=== PATIENT | female | born 1960 | race African-American/Black ===

== ENCOUNTER 2016-09-24 18:32 | Inpatient (IN) | payer OTHER ==
[~2016-09-24] VITALS: Ht 157.5 cm; Wt 48.1 kg
[2016-09-24] MEDS ORDERED: MORPHINE SULFATE 4 MG/ML CPJ (NOT FOR IM USE) IV STA (19:18)
[2016-09-24] MEDS ORDERED: ONDANSETRON HCL 4MG/2ML VIAL IV STA (19:18)
[2016-09-24] MEDS ORDERED: SODIUM CHLORIDE 0.9% 1,000 ML IV ONE (19:18)
[2016-09-24 19:51] LABS: BASOPHILS % 0.9 % (0.0-2.0); CHLORIDE 107 mEq/L (98-107); EOSINOPHILS % 0.9 % (0.0-5.0); HEMATOCRIT. 34.8 % (36.0-48.0); HEMOGLOBIN. 11.4 g/dL (12.0-16.0); LYMPHOCYTES % 16.7 % (20.0-50.0); MEAN CORPUSCULAR HEMOGLOBIN 26.5 pg (28.0-32.0); MEAN CORPUSCULAR VOLUME 81.4 fL (81.0-99.0); MONOCYTES % 11.8 % (2.0-8.0); NEUTROPHILS % 69.7 % (40.0-76.0); PLATELET 414 x1000/uL (130-400); RED BLOOD CELL COUNT 4.28 mill/uL (4.2-5.4); RED CELL DISTRIBUTION WIDTH 21.8 % (11.6-14.6)
[2016-09-24 19:53] LABS: INR 0.9; PROTHROMBIN TIME 9.8 sec
[2016-09-24 19:57] LABS: CARBON DIOXIDE 23 mEq/L (21-32)
[2016-09-24 21:17] LABS: CLARITY URINE CLEAR (CLEAR); COLOR URINE YELLOW (YELLOW); GLUCOSE URINE NEGATIVE (NEGATIVE); KETONES URINE NEGATIVE (NEGATIVE); LEUKOCYTE ESTERASE URINE NEGATIVE (NEGATIVE); NITRITE URINE NEGATIVE (NEGATIVE); OCCULT BLOOD URINE NEGATIVE (NEGATIVE); PH URINE 5.5 (4.5-8.0); PROTEIN URINE NEGATIVE (NEGATIVE); SPECIFIC GRAVITY URINE 1.015 (1.005-1.030); UROBILINOGEN URINE 0.2 E.U./dL (0.2-1.0)
[2016-09-24] MEDS ORDERED: KETOROLAC 30MG/ML VIAL IV ONE (22:00)
[2016-09-24] MEDS ORDERED: ACETAMINOPHEN 325MG TABLET PO PRN (22:30)
[2016-09-24] MEDS ORDERED: MAGNESIUM/ALUMINUM HYDROXIDE/SIMETHICONE 30ML UDC PO PRN (22:30)
[2016-09-24] MEDS ORDERED: SODIUM CHLORIDE 0.9% 1,000 ML IV SCH (22:30)
[2016-09-24] MEDS ORDERED: IPRATROPIUM/ALBUTEROL 0.5-3(2.5)MG/3ML NEB INH PRN (22:30)
[2016-09-24] MEDS ORDERED: ONDANSETRON HCL 4MG/2ML VIAL IV PRN (22:30)
[2016-09-24 23:24] LABS: CHLORIDE 108 mEq/L (98-107)
[2016-09-24 23:29] LABS: CARBON DIOXIDE 27 mEq/L (21-32)
[2016-09-24] MEDS: HYDROCODONE/ACETAMINOPHEN 5/325MG TABLET PO PRN (23:40)
[2016-09-25] MEDS: CLONIDINE 0.1MG TABLET PO PRN ×2 (00:31→19:59)
[2016-09-25 01:30] VITALS: BP 116/71
[2016-09-25] MEDS: HYDROCODONE/ACETAMINOPHEN 5/325MG TABLET PO PRN ×3 (02:08→17:18)
[2016-09-25] MEDS: METHYLPREDNISOLONE SOD SUCC 40 MG/ML VIAL IV SCH ×3 (02:18→17:14)
[2016-09-25] MEDS: MESALAMINE 400 MG CAPSULE.DR PO SCH ×4 (03:17→17:14)
[2016-09-25] MEDS ORDERED: CEFTRIAXONE 1 G PREMIX 50 ML IV SCH (03:30)
[2016-09-25] MEDS: METRONIDAZOLE 500 MG PREMIX 100 ML IV SCH ×2 (06:39→14:41)
[2016-09-25 06:46] LABS: HEMOGLOBIN. 10.2 g/dL (12.0-16.0); MEAN CORPUSCULAR VOLUME 82.2 fL (81.0-99.0); MEAN PLATELET VOLUME 7.4 fl (7.4-10.4); PLATELET 389 x1000/uL (130-400); RED BLOOD CELL COUNT 3.77 mill/uL (4.2-5.4)
[2016-09-25] MEDS ORDERED: P20 PO (06:52)
[2016-09-25 07:18] LABS: CREATINE KINASE 75 IU/L (26-192); HDL CHOLESTEROL 111 mg/dL (40-59); LDL CHOLESTEROL 33 mg/dL (5-100)
[2016-09-25 07:24] LABS: TROPONIN I < 0.02 ng/mL (0.00-0.04)
[2016-09-25 07:43] LABS: *AMPHETAMINES SCREEN URINE NEGATIVE (NEGATIVE); *BARBITURATES SCREEN URINE NEGATIVE (NEGATIVE); *BENZODIAZEPINES SCREEN URINE NEGATIVE (NEGATIVE); *COCAINE SCREEN URINE PRESUMTIVE POSITIVE (NEGATIVE); CANNABINOID URINE SCREEN PRESUMTIVE POSITIVE (NEGATIVE); METHADONE URINE SCREEN NEGATIVE (NEGATIVE); OPIATES URINE SCREEN PRESUMTIVE POSITIVE (NEGATIVE); PHENCYCLIDINE URINE SCREEN NEGATIVE (NEGATIVE)
[2016-09-25] MEDS ORDERED: HYDR-3927 (07:55)
[2016-09-25] MEDS ORDERED: PANT40TA4 (07:55)
[2016-09-25] MEDS ORDERED: PRED5TAB (07:55)
[2016-09-25] MEDS ORDERED: HYDR-4135 (07:55)
[2016-09-25] MEDS ORDERED: LISI-604 (07:55)
[2016-09-25 08:00] VITALS: BP 125/90
[2016-09-25] MEDS ORDERED: ENOXAPARIN 40MG/0.4ML SYR SUBCUT SCH (09:00)
[2016-09-25 12:00] VITALS: BP 126/76
[2016-09-25] MEDS: MORPHINE SULFATE 2 MG/ML CPJ (NOT FOR IM USE) IV PRN ×2 (12:44→19:55)
[2016-09-25 14:05] LABS: PLATELET ESTIMATE NORMAL
[2016-09-25 16:00] VITALS: BP 124/76
[2016-09-25 16:00] LABS: CREATINE KINASE 69 IU/L (26-192); CREATINE KINASE MB FRACTION < 0.5 ng/mL (0.5-3.6); TROPONIN I < 0.02 ng/mL (0.00-0.04)
[2016-09-25 19:53] VITALS: BP 146/108
[2016-09-25 20:01] VITALS: BP 146/108
== END 2016-09-25 21:15 | disposition short-term general hospital (02) | DRG 245 ==
LOC: ER 18:40 → 8WST 21:21 → ENRESERV 23:40
PROVIDERS: ADMIT Internal Medicine; ATTEND Internal Medicine
DX: K50.012 Crohn's disease of small intestine with intestinal obstruction (principal); K56.60 Unspecified intestinal obstruction; E46 Unspecified protein-calorie malnutrition; K86.89 Other specified diseases of pancreas; D25.9 Leiomyoma of uterus, unspecified; D64.9 Anemia, unspecified; F17.210 Nicotine dependence, cigarettes, uncomplicated; F14.10 Cocaine abuse, uncomplicated; I10 Essential (primary) hypertension; Z91.19 Patient's noncompliance with other medical treatment and regimen; Z88.6 Allergy status to analgesic agent; Z91.018 Allergy to other foods; Z76.5 Malingerer [conscious simulation]
CPT/HCPCS: 36415; 74176; 80048; 80053; 80061; 80305; 81003; 82550; 82553; 83735; 84443; 84484; 85025; 85610; 87040; 93970; 96361; 96374; 96375; 99285; J0696; J1650; J1885; J2270; J2405; J2920; J3490; J7030

== ENCOUNTER 2018-03-11 14:17 | Inpatient (IN) | payer SELFPAY ==
[~2018-03-11] VITALS: Ht 152.4 cm; Wt 45.5 kg
[~2018-03-11 14:17] MED LIST: HYDR-4001 PO; HYDR-4135; LISI-604; P20 PO; PANT40TA4; PRED5TAB
[2018-03-11] MEDS ORDERED: MORPHINE SULFATE 4 MG/ML CPJ (NOT FOR IM USE) IV STA (15:46)
[2018-03-11] MEDS ORDERED: ONDANSETRON HCL 4MG/2ML INJ IV STA (15:46)
[2018-03-11 16:29] LABS: CHLORIDE 106 mEq/L (98-107)
[2018-03-11 16:30] LABS: BASOPHILS % 1.3 % (0.0-2.0); EOSINOPHILS % 2.8 % (0.0-5.0); HEMATOCRIT. 41.9 % (36.0-48.0); HEMOGLOBIN. 14.2 g/dL (12.0-16.0); LYMPHOCYTES % 31.9 % (20.0-50.0); MEAN CORPUSCULAR HEMOGLOBIN 31.1 pg (28.0-32.0); MEAN CORPUSCULAR VOLUME 91.9 fL (81.0-99.0); MEAN PLATELET VOLUME 7.8 fl (7.4-10.4); MONOCYTES % 7.6 % (2.0-8.0); NEUTROPHILS % 56.4 % (40.0-76.0); PLATELET 306 x1000/uL (130-400); RED BLOOD CELL COUNT 4.56 mill/uL (4.2-5.4); RED CELL DISTRIBUTION WIDTH 15.4 % (11.6-14.6)
[2018-03-11] MEDS ORDERED: LISINOPRIL 10MG TABLET PO ONE (17:15)
[2018-03-11 17:37] LABS: CLARITY URINE CLEAR (CLEAR); COLOR URINE YELLOW (YELLOW); KETONES URINE NEGATIVE (NEGATIVE); LEUKOCYTE ESTERASE URINE NEGATIVE (NEGATIVE); NITRITE URINE NEGATIVE (NEGATIVE); OCCULT BLOOD URINE NEGATIVE (NEGATIVE); PH URINE 6.5 (4.5-8.0); PROTEIN URINE NEGATIVE (NEGATIVE); UROBILINOGEN URINE 0.2 E.U./dL (0.2-1.0)
[2018-03-11 17:50] LABS: *AMPHETAMINES SCREEN URINE NEGATIVE (NEGATIVE); *BARBITURATES SCREEN URINE NEGATIVE (NEGATIVE)
[2018-03-11 17:51] LABS: *BENZODIAZEPINES SCREEN URINE NEGATIVE (NEGATIVE); *COCAINE SCREEN URINE PRESUMTIVE POSITIVE (NEGATIVE); CANNABINOID URINE SCREEN NEGATIVE (NEGATIVE); METHADONE URINE SCREEN NEGATIVE (NEGATIVE); OPIATES URINE SCREEN NEGATIVE (NEGATIVE); PHENCYCLIDINE URINE SCREEN NEGATIVE (NEGATIVE)
[2018-03-11] MEDS ORDERED: MORPHINE SULFATE 4 MG/ML CPJ (NOT FOR IM USE) IV ONE (19:15)
[2018-03-11] MEDS ORDERED: ONDANSETRON HCL 4MG/2ML INJ IV ONE (19:15)
[2018-03-12] VITALS (8 sets, daily range): BP systolic 129–174; BP diastolic 75–100
[2018-03-12] MEDS ORDERED: GUAIFENESIN 200MG/10ML SUGAR FREE UDC PO PRN ×2 (00:45→01:30)
[2018-03-12] MEDS ORDERED: ACETAMINOPHEN 325MG TABLET PO PRN ×2 (00:45→01:30)
[2018-03-12] MEDS ORDERED: IPRATROPIUM/ALBUTEROL 0.5-3(2.5)MG/3ML NEB INH PRN ×2 (00:45→01:30)
[2018-03-12] MEDS ORDERED: MAGNESIUM/ALUMINUM HYDROXIDE/SIMETHICONE 30ML UDC PO PRN (00:45)
[2018-03-12] MEDS ORDERED: ONDANSETRON HCL 4MG/2ML INJ IV PRN ×2 (00:45→01:30)
[2018-03-12] MEDS ORDERED: AMLO2.5T45 MT (01:06)
[2018-03-12] MEDS ORDERED: PANT20TA3 MT (01:06)
[2018-03-12] MEDS ORDERED: BENA10TA10 MT (01:06)
[2018-03-12] MEDS ORDERED: DIPH1TAB24 MT (01:06)
[2018-03-12] MEDS: CLONIDINE 0.1MG TABLET PO PRN (01:14)
[2018-03-12] MEDS ORDERED: HYDRALAZINE 20MG/ML VIAL IV PRN (01:30)
[2018-03-12] MEDS ORDERED: DIPHENHYDRAMINE 50MG/ML VIAL IV PRN (01:30)
[2018-03-12] MEDS: TRAMADOL 50MG TABLET PO PRN ×4 (02:12→22:37)
[2018-03-12] MEDS ORDERED: METHYLPREDNISOLONE SOD SUCC 125 MG/2 ML VIAL IV NR (03:00)
[2018-03-12] MEDS: DEXT 5%/0.45% NACL KCL 20MEQ/L 1,000 ML IV SCH ×3 (03:27→20:57)
[2018-03-12] MEDS: IPRATROPIUM/ALBUTEROL 0.5-3(2.5)MG/3ML NEB HHN SCH ×5 (03:45→20:36)
[2018-03-12] MEDS: SODIUM CHLORIDE 0.9% INJ 3ML FLUSH IVF SCH ×3 (06:00→22:37)
[2018-03-12] MEDS ORDERED: FAMOTIDINE 20MG TABLET PO SCH (09:00)
[2018-03-12] MEDS: BENAZEPRIL 10MG TABLET PO SCH (09:14)
[2018-03-12] MEDS: FAMOTIDINE 20MG TABLET PO SCH ×2 (09:14→20:57)
[2018-03-12] MEDS: AMLODIPINE 2.5MG TABLET PO SCH (09:14)
[2018-03-12] MEDS: ENOXAPARIN 40MG/0.4ML SYR SUBCUT SCH (09:15)
[2018-03-12] MEDS: METHYLPREDNISOLONE SOD SUCC 40 MG/ML VIAL IV SCH ×2 (13:18→20:56)
[2018-03-12] MEDS: MESALAMINE 400 MG CAPSULE.DR PO SCH ×2 (14:00→17:44)
[2018-03-13] VITALS: BP 154/84
[2018-03-13] MEDS: CLONIDINE 0.1MG TABLET PO PRN (03:29)
[2018-03-13 04:00] VITALS: BP 167/85
[2018-03-13] MEDS: METHYLPREDNISOLONE SOD SUCC 40 MG/ML VIAL IV SCH ×2 (04:40→12:44)
[2018-03-13] MEDS: TRAMADOL 50MG TABLET PO PRN ×2 (04:46→11:22)
[2018-03-13] MEDS: IPRATROPIUM/ALBUTEROL 0.5-3(2.5)MG/3ML NEB HHN SCH ×5 (04:48→15:07)
[2018-03-13] MEDS: SODIUM CHLORIDE 0.9% INJ 3ML FLUSH IVF SCH ×2 (05:26→12:44)
[2018-03-13] MEDS: DEXT 5%/0.45% NACL KCL 20MEQ/L 1,000 ML IV SCH (07:12)
[2018-03-13 08:00] VITALS: BP 139/86
[2018-03-13] MEDS: ENOXAPARIN 40MG/0.4ML SYR SUBCUT SCH (09:50)
[2018-03-13] MEDS: FAMOTIDINE 20MG TABLET PO SCH (09:51)
[2018-03-13] MEDS: BENAZEPRIL 10MG TABLET PO SCH (09:51)
[2018-03-13] MEDS: AMLODIPINE 2.5MG TABLET PO SCH (09:51)
[2018-03-13] MEDS: MESALAMINE 400 MG CAPSULE.DR PO SCH ×2 (09:51→12:44)
[2018-03-13 12:00] VITALS: BP 142/83
[2018-03-13 15:22] VITALS: BP 142/83
== END 2018-03-13 17:30 | disposition home or self-care (01) | DRG 245 ==
LOC: ER 15:11 → 5WST 19:14 → EDBEDREQ 19:18 → EDBEDREQTM 19:18 → ENRESERV 22:48
PROVIDERS: ADMIT Internal Medicine; ATTEND Internal Medicine
DX: K50.00 Crohn's disease of small intestine without complications (principal); F14.10 Cocaine abuse, uncomplicated; R07.89 Other chest pain; F17.210 Nicotine dependence, cigarettes, uncomplicated; I10 Essential (primary) hypertension; J44.9 Chronic obstructive pulmonary disease, unspecified; M54.30 Sciatica, unspecified side; Z79.52 Long term (current) use of systemic steroids; Z82.49 Family history of ischemic heart disease and other diseases of the circulatory system; Z91.14 Patient's other noncompliance with medication regimen; Z91.19 Patient's noncompliance with other medical treatment and regimen; Z88.5 Allergy status to narcotic agent; Z91.018 Allergy to other foods
CPT/HCPCS: 36415; 71045; 74176; 80305; 83880; 84484; 93005; 94640; 96374; 96375; 96376; 99285; J1650; J2270; J2405; J2920; J2930; J7620

== ENCOUNTER 2018-06-02 03:00 | Emergency (ER) | payer OTHER ==
[~2018-06-02] VITALS: Ht 162.6 cm; Wt 65.0 kg
[~2018-06-02 03:00] MED LIST changes: +AMLO2.5T45 MT; +BENA10TA10 MT; +DIPH1TAB24 MT; -HYDR-4135; -LISI-604; +PANT20TA3 MT; -PANT40TA4; -PRED5TAB
[2018-06-02] MEDS ORDERED: SODIUM CHLORIDE 0.9% 1,000 ML IV ONE (05:03)
[2018-06-02] MEDS ORDERED: ACETAMINOPHEN 325MG TABLET PO STA (05:03)
[2018-06-02] MEDS ORDERED: MORPHINE SULFATE 4 MG/ML CPJ (NOT FOR IM USE) IV STA (05:03)
[2018-06-02] MEDS ORDERED: ONDANSETRON HCL 4MG/2ML INJ IV STA (05:03)
[2018-06-02 05:41] LABS: EOSINOPHILS % 0.7 % (0.0-5.0); HEMATOCRIT. 40.7 % (36.0-48.0); HEMOGLOBIN. 13.8 g/dL (12.0-16.0); LYMPHOCYTES % 15.6 % (20.0-50.0); MEAN CORPUSCULAR HEMOGLOBIN 30.1 pg (28.0-32.0); MEAN CORPUSCULAR VOLUME 88.8 fL (81.0-99.0); MONOCYTES % 7.9 % (2.0-8.0); NEUTROPHILS % 74.8 % (40.0-76.0); PLATELET 239 x1000/uL (130-400); RED BLOOD CELL COUNT 4.59 mill/uL (4.2-5.4); RED CELL DISTRIBUTION WIDTH 14.8 % (11.6-14.6)
[2018-06-02 05:46] LABS: CHLORIDE 100 mEq/L (98-107)
[2018-06-02] MEDS ORDERED: CEFTRIAXONE 1 G PREMIX 50 ML IV ONE (06:15)
[2018-06-02] MEDS ORDERED: AZITHROMYCIN 500 MG in DEXT 5% WATER 250 ML IV ONE (06:15)
[2018-06-02 07:05] LABS: CLARITY URINE CLEAR (CLEAR); COLOR URINE YELLOW (YELLOW); KETONES URINE NEGATIVE (NEGATIVE); LEUKOCYTE ESTERASE URINE NEGATIVE (NEGATIVE); NITRITE URINE NEGATIVE (NEGATIVE); OCCULT BLOOD URINE NEGATIVE (NEGATIVE); PH URINE 5.5 (4.5-8.0); PROTEIN URINE TRACE (NEGATIVE); SPECIFIC GRAVITY URINE 1.019 (1.005-1.030)
[2018-06-02] MEDS ORDERED: HYDROCODONE/ACETAMINOPHEN 5/325MG TABLET PO PRN (13:15)
[2018-06-02] MEDS ORDERED: CLONIDINE 0.1MG TABLET PO PRN (13:30)
[2018-06-02] MEDS ORDERED: IPRATROPIUM/ALBUTEROL 0.5-3(2.5)MG/3ML NEB HHN SCH (16:00)
[2018-06-02 17:31] VITALS: BP 137/87
== END 2018-06-02 18:00 | disposition short-term general hospital (02) ==
LOC: ER 03:00 → CANBEDREQ 17:02 → ER 18:00
DX: J44.1 Chronic obstructive pulmonary disease with (acute) exacerbation (principal); J18.9 Pneumonia, unspecified organism; K50.90 Crohn's disease, unspecified, without complications; F14.10 Cocaine abuse, uncomplicated; I10 Essential (primary) hypertension; F17.200 Nicotine dependence, unspecified, uncomplicated; M54.9 Dorsalgia, unspecified; Z71.6 Tobacco abuse counseling; Z88.6 Allergy status to analgesic agent; Z91.018 Allergy to other foods
CPT/HCPCS: 36415; 71045; 80053; 81003; 83605; 85025; 87040; 87804; 94640; 96365; 96366; 96367; 96375; 96376; 99285; 99406; J0456; J0696; J2270; J2405; J7030; J7060; J7620

== ENCOUNTER 2018-07-06 11:16 | Inpatient (IN) | payer OTHER ==
[~2018-07-06] VITALS: Ht 152.4 cm; Wt 48.1 kg
[2018-07-06 12:20] LABS: BASOPHILS % 0.8 % (0.0-2.0); EOSINOPHILS % 2.2 % (0.0-5.0); HEMATOCRIT. 42.7 % (36.0-48.0); LYMPHOCYTES % 33.5 % (20.0-50.0); MEAN CORPUSCULAR HEMOGLOBIN 29.3 pg (28.0-32.0); MEAN CORPUSCULAR VOLUME 89.2 fL (81.0-99.0); MEAN PLATELET VOLUME 7.2 fl (7.4-10.4); MONOCYTES % 8.4 % (2.0-8.0); NEUTROPHILS % 55.1 % (40.0-76.0); PLATELET 285 x1000/uL (130-400); RED BLOOD CELL COUNT 4.78 mill/uL (4.2-5.4); RED CELL DISTRIBUTION WIDTH 14.7 % (11.6-14.6)
[2018-07-06 12:25] LABS: INR 0.9; PROTHROMBIN TIME 9.5 sec (9.1-11.1)
[2018-07-06 12:26] LABS: CHLORIDE 107 mEq/L (98-107)
[2018-07-06] MEDS ORDERED: TETRACAINE 0.5% OPHTH DROPS 4ML RIGHTEYE ONE (12:30)
[2018-07-06] MEDS ORDERED: PILOCARPINE HCL 2% OPHTH DROPS 15ML RIGHTEYE STA (13:01)
[2018-07-06] MEDS ORDERED: TIMOLOL MALEATE 0.5% OPHTH DROPS 5ML RIGHTEYE STA (13:01)
[2018-07-06] MEDS ORDERED: ACETAZOLAMIDE SODIUM 500MG/VIAL IV ONE (13:15)
[2018-07-06] MEDS ORDERED: MANNITOL 20% (20GM/100ML) BAG 500ML PREMIX IV ONE (13:30)
[2018-07-06] MEDS ORDERED: MANNITOL 20% 250 ML IV SCH (14:00)
[2018-07-06] MEDS ORDERED: OXYCODONE HCL/ACETAMINOPHEN 5/325MG TABLET PO ONE (14:00)
[2018-07-06] MEDS ORDERED: ACETAMINOPHEN 325MG TABLET PO PRN (14:15)
[2018-07-06] MEDS ORDERED: HYDROCODONE/ACETAMINOPHEN 5/325MG TABLET PO PRN (14:15)
[2018-07-06] MEDS ORDERED: LABETALOL 5MG/ML SYR 20 MG/4 ML SYRINGE IV SCH (15:15)
[2018-07-06] MEDS: CLONIDINE 0.1MG TABLET PO PRN ×2 (15:19→22:43)
[2018-07-06] MEDS: MORPHINE SULFATE 4 MG/ML CPJ (NOT FOR IM USE) IV PRN ×2 (17:52→22:44)
[2018-07-06 21:45] VITALS: BP 165/95
[2018-07-06] MEDS: PILOCARPINE HCL 2% OPHTH DROPS 15ML BOTHEYE SCH (22:41)
[2018-07-06] MEDS: LATANOPROST 0.005% OPHTH DROPS 2.5ML BOTHEYE SCH (22:41)
[2018-07-06] MEDS: TIMOLOL MALEATE 0.5% OPHTH DROPS 5ML EACHEYE SCH (23:23)
[2018-07-06] MEDS ORDERED: MESA800T PO (23:57)
[2018-07-07] VITALS: BP 136/87
[2018-07-07] MEDS: IPRATROPIUM/ALBUTEROL 0.5-3(2.5)MG/3ML NEB HHN PRN (00:44)
[2018-07-07] MEDS: BUDESONIDE 0.5MG/2ML NEB HHN SCH ×3 (00:45→21:53)
[2018-07-07] MEDS: MORPHINE SULFATE 4 MG/ML CPJ (NOT FOR IM USE) IV PRN ×4 (03:10→21:17)
[2018-07-07 04:00] VITALS: BP 126/86
[2018-07-07] MEDS: PILOCARPINE HCL 2% OPHTH DROPS 15ML BOTHEYE SCH ×3 (06:03→21:17)
[2018-07-07 07:03] LABS: BASOPHILS % 0.6 % (0.0-2.0); EOSINOPHILS % 2.4 % (0.0-5.0); HEMATOCRIT. 40.6 % (36.0-48.0); HEMOGLOBIN. 13.2 g/dL (12.0-16.0); LYMPHOCYTES % 32.2 % (20.0-50.0); MEAN CORPUSCULAR HEMOGLOBIN 29.4 pg (28.0-32.0); MEAN CORPUSCULAR VOLUME 90.5 fL (81.0-99.0); MEAN PLATELET VOLUME 7.7 fl (7.4-10.4); MONOCYTES % 7.8 % (2.0-8.0); PLATELET 248 x1000/uL (130-400); RED BLOOD CELL COUNT 4.49 mill/uL (4.2-5.4)
[2018-07-07 07:13] LABS: CHLORIDE 107 mEq/L (98-107)
[2018-07-07] MEDS: AMLODIPINE 5MG TABLET PO SCH ×2 (08:35→21:00)
[2018-07-07] MEDS: BENAZEPRIL 10MG TABLET PO SCH (08:36)
[2018-07-07] MEDS: TIMOLOL MALEATE 0.5% OPHTH DROPS 5ML EACHEYE SCH ×2 (08:36→21:08)
[2018-07-07] MEDS: ACETAZOLAMIDE SODIUM 500MG/VIAL IV SCH ×2 (08:37→18:51)
[2018-07-07] MEDS ORDERED: BENAZEPRIL 10MG TABLET PO SCH (09:00)
[2018-07-07 12:15] VITALS: BP 114/74
[2018-07-07 15:31] VITALS: BP 110/74
[2018-07-07] MEDS ORDERED: BALANCED SALT IRRIG SOLN 15ML ONE (16:21)
[2018-07-07] MEDS ORDERED: BUPIVACAINE HCL/PF 0.75% (7.5MG/ML) 10ML ONE (16:21)
[2018-07-07] MEDS ORDERED: LIDOCAINE HCL/PF 2% 20 MG/ML 10ML VIAL ONE (16:21)
[2018-07-07] MEDS ORDERED: LIDOCAINE HCL 2%/EPINEPHRINE 1:100,000 20 ML VIAL INFIL ONE (16:21)
[2018-07-07 20:00] VITALS: BP 109/76
[2018-07-07] MEDS: LATANOPROST 0.005% OPHTH DROPS 2.5ML BOTHEYE SCH (21:08)
[2018-07-08] VITALS: BP 110/71
[2018-07-08 04:00] VITALS: BP 128/80
[2018-07-08] MEDS: PILOCARPINE HCL 2% OPHTH DROPS 15ML BOTHEYE SCH ×3 (06:56→22:46)
[2018-07-08] MEDS: ACETAZOLAMIDE SODIUM 500MG/VIAL IV SCH (07:49)
[2018-07-08] MEDS: AMLODIPINE 5MG TABLET PO SCH ×2 (07:49→21:23)
[2018-07-08] MEDS: BENAZEPRIL 10MG TABLET PO SCH (07:49)
[2018-07-08] MEDS: TIMOLOL MALEATE 0.5% OPHTH DROPS 5ML EACHEYE SCH ×2 (07:50→21:23)
[2018-07-08] MEDS: MORPHINE SULFATE 4 MG/ML CPJ (NOT FOR IM USE) IV PRN ×4 (07:51→22:17)
[2018-07-08 08:00] VITALS: BP 127/67
[2018-07-08] MEDS: IPRATROPIUM/ALBUTEROL 0.5-3(2.5)MG/3ML NEB HHN PRN (09:29)
[2018-07-08] MEDS: BUDESONIDE 0.5MG/2ML NEB HHN SCH ×2 (09:29→20:25)
[2018-07-08 12:00] VITALS: BP 118/82
[2018-07-08] MEDS ORDERED: BALANCED SALT IRRIG SOLN COMB1 500ML OP NR (12:00)
[2018-07-08] MEDS ORDERED: MITOMYCIN 0.2 MG KIT OP NR (12:00)
[2018-07-08] MEDS ORDERED: ONDANSETRON HCL 4MG/2ML INJ ONE (15:10)
[2018-07-08] MEDS ORDERED: PROPOFOL 200MG/20ML VIAL IV ONE (15:10)
[2018-07-08] MEDS ORDERED: DEXAMETHASONE 4MG/ML 1ML VIAL ONE (15:10)
[2018-07-08] MEDS ORDERED: MIDAZOLAM HCL 2 MG/2 ML VIAL ONE ×2 (15:10→15:29)
[2018-07-08] MEDS ORDERED: FENTANYL CITRATE/PF 50MCG/ML 2ML VIAL ONE ×2 (15:10→15:29)
[2018-07-08] MEDS ORDERED: MEPERIDINE HCL/PF 25MG/ML CPJ IV PRN (15:45)
[2018-07-08] MEDS ORDERED: ONDANSETRON HCL 4MG/2ML INJ IV PRN (15:45)
[2018-07-08] MEDS ORDERED: HYDROMORPHONE HCL/PF 2MG/ML CPJ IV PRN (15:45)
[2018-07-08] MEDS ORDERED: LABETALOL 5MG/ML SYR 20 MG/4 ML SYRINGE IV PRN (15:45)
[2018-07-08 16:00] VITALS: BP 146/78
[2018-07-08] MEDS ORDERED: ACETAMINOPHEN 325MG TABLET PO PRN (17:53)
[2018-07-08 20:04] VITALS: BP 126/69
[2018-07-08] MEDS: LATANOPROST 0.005% OPHTH DROPS 2.5ML BOTHEYE SCH (21:23)
[2018-07-09] MEDS: CLONIDINE 0.1MG TABLET PO PRN (00:11)
[2018-07-09 00:21] VITALS: BP 168/98
[2018-07-09 01:40] VITALS: BP 136/62
[2018-07-09] MEDS: MORPHINE SULFATE 4 MG/ML CPJ (NOT FOR IM USE) IV PRN ×3 (01:54→11:50)
[2018-07-09 04:00] VITALS: BP 126/72
[2018-07-09] MEDS: PILOCARPINE HCL 2% OPHTH DROPS 15ML BOTHEYE SCH (05:44)
[2018-07-09 06:29] LABS: BASOPHILS % 0.2 % (0.0-2.0); EOSINOPHILS % 1.6 % (0.0-5.0); HEMATOCRIT. 36.4 % (36.0-48.0); HEMOGLOBIN. 11.9 g/dL (12.0-16.0); LYMPHOCYTES % 19.8 % (20.0-50.0); MEAN CORPUSCULAR HEMOGLOBIN 29.6 pg (28.0-32.0); MEAN CORPUSCULAR VOLUME 90.3 fL (81.0-99.0); MEAN PLATELET VOLUME 7.2 fl (7.4-10.4); MONOCYTES % 10.5 % (2.0-8.0); NEUTROPHILS % 67.9 % (40.0-76.0); PLATELET 254 x1000/uL (130-400); RED BLOOD CELL COUNT 4.03 mill/uL (4.2-5.4); RED CELL DISTRIBUTION WIDTH 14.9 % (11.6-14.6)
[2018-07-09 06:44] LABS: CHLORIDE 109 mEq/L (98-107)
[2018-07-09 08:00] VITALS: BP 120/72
[2018-07-09] MEDS: AMLODIPINE 5MG TABLET PO SCH (08:28)
[2018-07-09] MEDS: BENAZEPRIL 10MG TABLET PO SCH (08:29)
[2018-07-09] MEDS: TIMOLOL MALEATE 0.5% OPHTH DROPS 5ML EACHEYE SCH (08:29)
[2018-07-09] MEDS: PREDNISOLONE ACETATE 1% OPHTH DROPS 1ML RIGHTEYE SCH ×3 (08:29→12:55)
[2018-07-09] MEDS: CIPROFLOXACIN 0.3% OPHTH SOLN 2.5ML RIGHTEYE SCH ×2 (08:30→12:55)
[2018-07-09] MEDS: BUDESONIDE 0.5MG/2ML NEB HHN SCH (09:14)
[2018-07-09 10:19] VITALS: BP 120/72
[2018-07-09 12:00] VITALS: BP 117/73
== END 2018-07-09 14:35 | disposition home or self-care (01) | DRG 73 ==
LOC: ER 11:16 → 6WST 13:50 → EDBEDREQTM 13:53 → EDBEDREQ 13:53 → EDBEDREQSVC 13:53 → ENRESERV 20:51
PROVIDERS: ADMIT Internal Medicine; ATTEND Internal Medicine
PROC: 08123Z4 Bypass Right Anterior Chamber to Sclera, Percutaneous Approach (ICD-10-PCS; principal; 2018-07-08)
PROC: 08BC3ZZ Excision of Right Iris, Percutaneous Approach (ICD-10-PCS; 2018-07-08)
DX: H40.10X0 Unspecified open-angle glaucoma, stage unspecified (principal); H47.291 Other optic atrophy, right eye; K50.90 Crohn's disease, unspecified, without complications; I16.0 Hypertensive urgency; I10 Essential (primary) hypertension; J44.9 Chronic obstructive pulmonary disease, unspecified; F17.200 Nicotine dependence, unspecified, uncomplicated; H25.13 Age-related nuclear cataract, bilateral; H54.62 Unqualified visual loss, left eye, normal vision right eye; Z91.19 Patient's noncompliance with other medical treatment and regimen; Z79.899 Other long term (current) drug therapy; Z88.8 Allergy status to other drugs, medicaments and biological substances; Z91.018 Allergy to other foods
CPT/HCPCS: 36415; 72148; 80048; 80061; 84443; 93970; 94640; 96365; 96366; 96375; 99285; J1100; J1120; J2250; J2270; J2405; J2704; J3010; J3490; J7620; J7626; J9280

== ENCOUNTER 2018-12-01 17:03 | Emergency (ER) | payer OTHER ==
[~2018-12-01] VITALS: Ht 152.4 cm; Wt 48.0 kg
[~2018-12-01 17:03] MED LIST changes: -AMLO2.5T45 MT; -BENA10TA10 MT; +MESA800T PO
[2018-12-01 18:43] VITALS: BP 162/110
== END 2018-12-01 22:00 | disposition left against medical advice (07) ==
LOC: ER 17:03
DX: Z53.21 Procedure and treatment not carried out due to patient leaving prior to being seen by health care provider (principal); I11.0 Hypertensive heart disease with heart failure; I50.9 Heart failure, unspecified; J44.9 Chronic obstructive pulmonary disease, unspecified; K50.90 Crohn's disease, unspecified, without complications
CPT/HCPCS: 93005

== ENCOUNTER 2019-01-03 14:53 | Emergency (ER) | payer OTHER ==
[~2019-01-03] VITALS: Ht 167.6 cm; Wt 63.5 kg
[2019-01-03] MEDS ORDERED: MORPHINE SULFATE 4 MG/ML CPJ (NOT FOR IM USE) IV STA (16:53)
[2019-01-03] MEDS ORDERED: SODIUM CHLORIDE 0.9% 1,000 ML IV ONE (16:53)
[2019-01-03] MEDS ORDERED: ONDANSETRON HCL 4MG/2ML INJ IV STA (16:53)
[2019-01-03] MEDS ORDERED: HYDRALAZINE 20MG/ML VIAL IV ONE ×2 (17:00→18:15)
[2019-01-03 17:41] LABS: EOSINOPHILS % 1.4 % (0.0-5.0); HEMATOCRIT. 41.1 % (36.0-48.0); HEMOGLOBIN. 13.9 g/dL (12.0-16.0); LYMPHOCYTES % 27.7 % (20.0-50.0); MEAN CORPUSCULAR HEMOGLOBIN 30.4 pg (28.0-32.0); MEAN PLATELET VOLUME 8.4 fl (7.4-10.4); MONOCYTES % 7.6 % (2.0-8.0); NEUTROPHILS % 62.3 % (40.0-76.0); PLATELET 272 x1000/uL (130-400); RED BLOOD CELL COUNT 4.57 mill/uL (4.2-5.4)
[2019-01-03 17:48] LABS: CHLORIDE 107 mEq/L (98-107)
[2019-01-03 17:50] LABS: INR 0.9; PARTIAL THROMBOPLASTIN TIME 25.8 sec (23.4-31.0); PROTHROMBIN TIME 9.4 sec (9.6-11.0)
[2019-01-03 18:30] LABS: CLARITY URINE CLEAR (CLEAR); COLOR URINE YELLOW (YELLOW); KETONES URINE NEGATIVE (NEGATIVE); LEUKOCYTE ESTERASE URINE NEGATIVE (NEGATIVE); NITRITE URINE NEGATIVE (NEGATIVE); OCCULT BLOOD URINE NEGATIVE (NEGATIVE); PH URINE 7.5 (4.5-8.0); PROTEIN URINE NEGATIVE (NEGATIVE); SPECIFIC GRAVITY URINE 1.005 (1.005-1.030); UROBILINOGEN URINE 0.2 E.U./dL (0.2-1.0)
[2019-01-03] MEDS ORDERED: TRAMADOL 50MG TABLET PO ONE (20:30)
[2019-01-03 21:18] VITALS: BP 147/85
== END 2019-01-03 21:19 | disposition home or self-care (01) ==
LOC: ER 14:53
DX: R10.13 Epigastric pain (principal); K50.90 Crohn's disease, unspecified, without complications; D25.9 Leiomyoma of uterus, unspecified; I11.0 Hypertensive heart disease with heart failure; I50.9 Heart failure, unspecified; J44.9 Chronic obstructive pulmonary disease, unspecified; M54.30 Sciatica, unspecified side; Z88.6 Allergy status to analgesic agent; Z91.018 Allergy to other foods
CPT/HCPCS: 36415; 71045; 74176; 80053; 81003; 83690; 83880; 84484; 85025; 85610; 85730; 93005; 96374; 96375; 99284; J0360; J2270; J2405; J7030

== ENCOUNTER 2019-01-11 17:23 | Emergency (ER) | payer OTHER ==
[~2019-01-11] VITALS: Ht 152.4 cm; Wt 45.0 kg
[2019-01-11] MEDS ORDERED: MORPHINE SULFATE 4 MG/ML CPJ (NOT FOR IM USE) IV STA (18:29)
[2019-01-11] MEDS ORDERED: ONDANSETRON HCL 4MG/2ML INJ IV STA (18:29)
[2019-01-11] MEDS ORDERED: SODIUM CHLORIDE 0.9% 1,000 ML IV ONE (18:29)
[2019-01-11 18:58] LABS: BASOPHILS % 1.1 % (0.0-2.0); EOSINOPHILS % 1.2 % (0.0-5.0); HEMATOCRIT. 41.1 % (36.0-48.0); HEMOGLOBIN. 13.5 g/dL (12.0-16.0); LYMPHOCYTES % 24.7 % (20.0-50.0); MEAN CORPUSCULAR HEMOGLOBIN 29.9 pg (28.0-32.0); MEAN CORPUSCULAR VOLUME 90.9 fL (81.0-99.0); MEAN PLATELET VOLUME 7.5 fl (7.4-10.4); MONOCYTES % 9.8 % (2.0-8.0); NEUTROPHILS % 63.2 % (40.0-76.0); PLATELET 301 x1000/uL (130-400); RED BLOOD CELL COUNT 4.52 mill/uL (4.2-5.4)
[2019-01-11 19:01] LABS: CHLORIDE 109 mEq/L (98-107)
[2019-01-11 19:02] LABS: PARTIAL THROMBOPLASTIN TIME 25.7 sec (23.4-31.0); PROTHROMBIN TIME 9.8 sec (9.6-11.0)
[2019-01-11 19:05] LABS: ETHANOL BLOOD < 10 mg/dL
[2019-01-11 19:09] LABS: CREATINE KINASE 67 IU/L (26-192)
[2019-01-11 19:10] LABS: CREATINE KINASE MB FRACTION < 1.0 ng/mL (0.5-3.6)
[2019-01-11 20:33] LABS: CLARITY URINE CLEAR (CLEAR); COLOR URINE YELLOW (YELLOW); KETONES URINE NEGATIVE (NEGATIVE); LEUKOCYTE ESTERASE URINE NEGATIVE (NEGATIVE); NITRITE URINE NEGATIVE (NEGATIVE); OCCULT BLOOD URINE NEGATIVE (NEGATIVE); PROTEIN URINE NEGATIVE (NEGATIVE); SPECIFIC GRAVITY URINE 1.017 (1.005-1.030); UROBILINOGEN URINE 0.2 E.U./dL (0.2-1.0)
[2019-01-11 21:01] LABS: OPIATES URINE SCREEN PRESUMTIVE POSITIVE (NEGATIVE)
[2019-01-11 21:02] LABS: *AMPHETAMINES SCREEN URINE NEGATIVE (NEGATIVE); *BARBITURATES SCREEN URINE NEGATIVE (NEGATIVE); *BENZODIAZEPINES SCREEN URINE NEGATIVE (NEGATIVE); *COCAINE SCREEN URINE PRESUMTIVE POSITIVE (NEGATIVE); CANNABINOID URINE SCREEN NEGATIVE (NEGATIVE); METHADONE URINE SCREEN NEGATIVE (NEGATIVE); PHENCYCLIDINE URINE SCREEN NEGATIVE (NEGATIVE)
[2019-01-11 22:10] VITALS: BP 172/89
[2019-01-11] MEDS ORDERED: MORPHINE SULFATE 4 MG/ML CPJ (NOT FOR IM USE) IV ONE (22:45)
[2019-01-11] MEDS ORDERED: ONDANSETRON HCL 4MG/2ML INJ IV ONE (22:45)
== END 2019-01-11 23:48 | disposition short-term general hospital (02) ==
LOC: ER 17:23 → CANBEDREQ 01-12 00:43
DX: J44.9 Chronic obstructive pulmonary disease, unspecified (principal); I11.0 Hypertensive heart disease with heart failure; I50.9 Heart failure, unspecified; K50.90 Crohn's disease, unspecified, without complications; K56.7 Ileus, unspecified; Z88.6 Allergy status to analgesic agent; Z91.018 Allergy to other foods; Z79.899 Other long term (current) drug therapy
CPT/HCPCS: 36415; 71045; 74018; 80053; 80305; 80320; 81003; 82140; 82550; 82553; 83605; 83690; 83880; 84443; 84484; 85025; 85610; 85730; 87040; 87086; 93005; 96361; 96374; 96375; 96376; 99285; J2270; J2405; J7030; Z7610; G0480

== ENCOUNTER 2019-03-29 10:30 | Inpatient (IN) | payer OTHER ==
[~2019-03-29] VITALS: Ht 152.4 cm; Wt 52.2 kg
[2019-03-29] MEDS ORDERED: SODIUM CHLORIDE 0.9% 1,000 ML IV ONE (12:16)
[2019-03-29] MEDS ORDERED: GABAPENTIN 300MG CAPSULE PO ONE (12:30)
[2019-03-29] MEDS ORDERED: MORPHINE SULFATE 4 MG/ML CPJ (NOT FOR IM USE) IV STA (14:22)
[2019-03-29] MEDS ORDERED: ONDANSETRON HCL 4MG/2ML INJ IV STA (14:22)
[2019-03-29 14:37] LABS: BASOPHILS % 1.4 % (0.0-2.0); EOSINOPHILS % 1.2 % (0.0-5.0); HEMATOCRIT. 39.1 % (36.0-48.0); MEAN CORPUSCULAR HEMOGLOBIN 28.6 pg (28.0-32.0); MEAN CORPUSCULAR VOLUME 86.4 fL (81.0-99.0); MEAN PLATELET VOLUME 7.6 fl (7.4-10.4); NEUTROPHILS % 69.4 % (40.0-76.0); PLATELET 308 x1000/uL (130-400); RED BLOOD CELL COUNT 4.53 mill/uL (4.2-5.4); RED CELL DISTRIBUTION WIDTH 13.8 % (11.6-14.6)
[2019-03-29 14:41] LABS: CHLORIDE 108 mEq/L (98-107)
[2019-03-29 15:03] LABS: INR 0.9; PROTHROMBIN TIME 9.4 sec (9.6-11.0)
[2019-03-29 15:33] LABS: CLARITY URINE CLOUDY (CLEAR); COLOR URINE YELLOW (YELLOW); KETONES URINE NEGATIVE (NEGATIVE); LEUKOCYTE ESTERASE URINE NEGATIVE (NEGATIVE); NITRITE URINE NEGATIVE (NEGATIVE); OCCULT BLOOD URINE NEGATIVE (NEGATIVE); PH URINE 5.5 (4.5-8.0); PROTEIN URINE NEGATIVE (NEGATIVE); SPECIFIC GRAVITY URINE 1.035 (1.005-1.030); UROBILINOGEN URINE 0.2 E.U./dL (0.2-1.0)
[2019-03-29] MEDS ORDERED: HYDRALAZINE HCL 25MG TABLET PO ONE (18:15)
[2019-03-29] MEDS ORDERED: OLANZAPINE 5MG TABLET PO SCH (18:15)
[2019-03-29] MEDS ORDERED: IOHEXOL-300 100 ML BOTTLE ONE (18:45)
[2019-03-29] MEDS ORDERED: DIPHENHYDRAMINE 50MG/ML VIAL IV PRN (20:45)
[2019-03-29] MEDS ORDERED: CLONIDINE 0.1MG TABLET PO PRN (20:45)
[2019-03-29] MEDS ORDERED: IPRATROPIUM/ALBUTEROL 0.5-3(2.5)MG/3ML NEB HHN PRN (20:45)
[2019-03-29] MEDS ORDERED: ONDANSETRON HCL 4MG/2ML INJ IV PRN (20:45)
[2019-03-29 20:50] VITALS: BP 185/102
[2019-03-29] MEDS: MORPHINE SULFATE 2 MG/ML CPJ (NOT FOR IM USE) IV PRN (22:56)
[2019-03-30] VITALS: BP 174/99
[2019-03-30 00:51] LABS: CREATINE KINASE 94 IU/L (26-192)
[2019-03-30 00:53] LABS: CREATINE KINASE MB FRACTION < 1.0 ng/mL (0.5-3.6)
[2019-03-30] MEDS: MORPHINE SULFATE 2 MG/ML CPJ (NOT FOR IM USE) IV PRN ×3 (03:37→16:14)
[2019-03-30 04:00] VITALS: BP 110/76
[2019-03-30 07:20] LABS: CHLORIDE 109 mEq/L (98-107)
[2019-03-30 07:21] LABS: BASOPHILS % 0.6 % (0.0-2.0); EOSINOPHILS % 1.9 % (0.0-5.0); HEMATOCRIT. 32.3 % (36.0-48.0); HEMOGLOBIN. 10.7 g/dL (12.0-16.0); LYMPHOCYTES % 28.5 % (20.0-50.0); MEAN CORPUSCULAR HEMOGLOBIN 28.7 pg (28.0-32.0); MEAN CORPUSCULAR VOLUME 86.6 fL (81.0-99.0); MEAN PLATELET VOLUME 8.1 fl (7.4-10.4); MONOCYTES % 10.6 % (2.0-8.0); NEUTROPHILS % 58.4 % (40.0-76.0); PLATELET 249 x1000/uL (130-400); RED BLOOD CELL COUNT 3.73 mill/uL (4.2-5.4); RED CELL DISTRIBUTION WIDTH 13.8 % (11.6-14.6)
[2019-03-30 07:29] LABS: LDL CHOLESTEROL 45 mg/dL (5-100)
[2019-03-30 07:31] LABS: CREATINE KINASE 86 IU/L (26-192)
[2019-03-30 07:32] LABS: HDL CHOLESTEROL 83 mg/dL (40-59)
[2019-03-30 07:34] LABS: CREATINE KINASE MB FRACTION < 1.0 ng/mL (0.5-3.6)
[2019-03-30 08:00] VITALS: BP 120/77
[2019-03-30] MEDS ORDERED: PNEUMOCOCCAL 23-VAL P-SAC VAC 0.5 ML IM ONE (08:00)
[2019-03-30] MEDS ORDERED: ENOXAPARIN 40MG/0.4ML SYR SUBCUT SCH (09:00)
[2019-03-30] MEDS ORDERED: INFLUENZA VIRUS VACCINE(AFLURIA) 0.5ML SYR IM ONE (10:00)
[2019-03-30 12:00] VITALS: BP 143/83
[2019-03-30 16:23] VITALS: BP_SYST 145; BP_SYST 155; BP_DIAS 83; BP_DIAS 94
== END 2019-03-30 17:29 | disposition short-term general hospital (02) | DRG 342 ==
LOC: ER 10:30 → 6EST 18:04 → EDBEDREQTM 18:07 → EDBEDREQ 18:07 → ENRESERV 18:55
PROVIDERS: ADMIT Internal Medicine; ATTEND Internal Medicine
DX: S82.201A Unspecified fracture of shaft of right tibia, initial encounter for closed fracture (principal); I11.0 Hypertensive heart disease with heart failure; I50.9 Heart failure, unspecified; E11.65 Type 2 diabetes mellitus with hyperglycemia; D25.9 Leiomyoma of uterus, unspecified; J44.9 Chronic obstructive pulmonary disease, unspecified; K50.90 Crohn's disease, unspecified, without complications; Z88.6 Allergy status to analgesic agent; Z91.018 Allergy to other foods; Z79.899 Other long term (current) drug therapy; Y08.89XA Assault by other specified means, initial encounter; Y93.89 Activity, other specified; Y92.098 Other place in other non-institutional residence as the place of occurrence of the external cause; Y99.8 Other external cause status
CPT/HCPCS: 36415; 71045; 73552; 73562; 73590; 74177; 80053; 80061; 81003; 82550; 82553; 83735; 83880; 84100; 84443; 84484; 85025; 90686; 90732; 93005; 93970; 96361; 96374; 96375; 99285; J1650; J2270; J2405; J7030; Q9967

== ENCOUNTER 2019-05-02 06:01 | Emergency (ER) | payer OTHER ==
[~2019-05-02] VITALS: Ht 165.1 cm; Wt 59.0 kg
[2019-05-02] MEDS ORDERED: MORPHINE SULFATE 4 MG/ML CPJ (NOT FOR IM USE) IV STA (06:34)
[2019-05-02 06:59] LABS: CHLORIDE 103 mEq/L (98-107)
[2019-05-02 07:03] LABS: BASOPHILS % 1.1 % (0.0-2.0); EOSINOPHILS % 1.5 % (0.0-5.0); HEMATOCRIT. 40.8 % (36.0-48.0); HEMOGLOBIN. 13.3 g/dL (12.0-16.0); LYMPHOCYTES % 24.4 % (20.0-50.0); MEAN CORPUSCULAR HEMOGLOBIN 27.4 pg (28.0-32.0); MEAN CORPUSCULAR VOLUME 84.2 fL (81.0-99.0); MEAN PLATELET VOLUME 8.7 fl (7.4-10.4); MONOCYTES % 6.9 % (2.0-8.0); NEUTROPHILS % 66.1 % (40.0-76.0); PLATELET 260 x1000/uL (130-400); RED BLOOD CELL COUNT 4.85 mill/uL (4.2-5.4); RED CELL DISTRIBUTION WIDTH 15.1 % (11.6-14.6)
[2019-05-02] MEDS ORDERED: HYDRALAZINE 20MG/ML VIAL IV ONE (08:15)
[2019-05-02 10:41] VITALS: BP 144/84
== END 2019-05-02 11:14 | disposition short-term general hospital (02) ==
LOC: ER 06:01
DX: R07.89 Other chest pain (principal); J44.9 Chronic obstructive pulmonary disease, unspecified; I11.0 Hypertensive heart disease with heart failure; I50.9 Heart failure, unspecified; I25.2 Old myocardial infarction; K50.90 Crohn's disease, unspecified, without complications; Z88.6 Allergy status to analgesic agent; Z88.8 Allergy status to other drugs, medicaments and biological substances; Z91.018 Allergy to other foods
CPT/HCPCS: 36415; 71045; 80053; 83880; 84484; 85025; 93005; 96374; 96375; 99285; J0360; J2270

== ENCOUNTER 2019-05-20 09:24 | Emergency (ER) | payer OTHER ==
[~2019-05-20] VITALS: Ht 152.4 cm; Wt 58.0 kg
[2019-05-20] MEDS ORDERED: ONDANSETRON HCL 4MG/2ML INJ IV STA (11:06)
[2019-05-20] MEDS ORDERED: ASPIRIN 81MG TABLET PO ONE (11:15)
[2019-05-20 11:43] LABS: BASOPHILS % 0.5 % (0.0-2.0); EOSINOPHILS % 1.5 % (0.0-5.0); HEMATOCRIT. 37.4 % (36.0-48.0); HEMOGLOBIN. 12.4 g/dL (12.0-16.0); LYMPHOCYTES % 16.4 % (20.0-50.0); MEAN CORPUSCULAR HEMOGLOBIN 27.3 pg (28.0-32.0); MEAN CORPUSCULAR VOLUME 82.5 fL (81.0-99.0); MEAN PLATELET VOLUME 7.2 fl (7.4-10.4); MONOCYTES % 8.8 % (2.0-8.0); NEUTROPHILS % 72.8 % (40.0-76.0); PLATELET 319 x1000/uL (130-400); RED BLOOD CELL COUNT 4.54 mill/uL (4.2-5.4); RED CELL DISTRIBUTION WIDTH 14.9 % (11.6-14.6)
[2019-05-20 11:53] LABS: CHLORIDE 104 mEq/L (98-107)
[2019-05-20 11:54] LABS: INR 0.9; PROTHROMBIN TIME 9.4 sec (9.6-11.0)
[2019-05-20 13:38] LABS: CLARITY URINE CLEAR (CLEAR); COLOR URINE YELLOW (YELLOW); KETONES URINE NEGATIVE (NEGATIVE); LEUKOCYTE ESTERASE URINE NEGATIVE (NEGATIVE); NITRITE URINE NEGATIVE (NEGATIVE); OCCULT BLOOD URINE NEGATIVE (NEGATIVE); PROTEIN URINE NEGATIVE (NEGATIVE); SPECIFIC GRAVITY URINE 1.018 (1.005-1.030); UROBILINOGEN URINE 0.2 E.U./dL (0.2-1.0)
[2019-05-20 14:04] LABS: *AMPHETAMINES SCREEN URINE NEGATIVE (NEGATIVE); *BARBITURATES SCREEN URINE NEGATIVE (NEGATIVE); *BENZODIAZEPINES SCREEN URINE NEGATIVE (NEGATIVE); *COCAINE SCREEN URINE NEGATIVE (NEGATIVE)
[2019-05-20 14:05] LABS: CANNABINOID URINE SCREEN NEGATIVE (NEGATIVE); METHADONE URINE SCREEN NEGATIVE (NEGATIVE); OPIATES URINE SCREEN PRESUMTIVE POSITIVE (NEGATIVE); PHENCYCLIDINE URINE SCREEN NEGATIVE (NEGATIVE)
[2019-05-20 14:50] VITALS: BP 142/88
== END 2019-05-20 15:18 | disposition home or self-care (01) ==
LOC: ER 09:24
DX: R07.89 Other chest pain (principal); M54.9 Dorsalgia, unspecified; I11.0 Hypertensive heart disease with heart failure; I50.9 Heart failure, unspecified; J44.9 Chronic obstructive pulmonary disease, unspecified; Z79.899 Other long term (current) drug therapy; Z88.6 Allergy status to analgesic agent
CPT/HCPCS: 36415; 71045; 73552; 73562; 73590; 80053; 80305; 81003; 83880; 84484; 85025; 93005; 99284

== ENCOUNTER 2019-08-24 09:43 | Emergency (ER) | payer MEDICAID, OTHER ==
[~2019-08-24] VITALS: Ht 152.4 cm; Wt 55.0 kg
[2019-08-24] MEDS ORDERED: SODIUM CHLORIDE 0.9% 1,000 ML IV ONE (10:30)
[2019-08-24] MEDS ORDERED: MORPHINE SULFATE 4 MG/ML CPJ (NOT FOR IM USE) IV ONE (10:30)
[2019-08-24] MEDS ORDERED: METHYLPREDNISOLONE SOD SUCC 125 MG/2 ML VIAL IV ONE (10:30)
[2019-08-24] MEDS ORDERED: CLONIDINE 0.2MG TABLET PO ONE (10:30)
[2019-08-24] MEDS ORDERED: DIPHENOXYLATE/ATROPINE 2.5/0.025MG TABLET PO ONE (10:30)
[2019-08-24 11:31] LABS: CHLORIDE 109 mEq/L (98-107)
[2019-08-24 11:40] LABS: INR 0.9; PROTHROMBIN TIME 9.9 sec (9.6-11.0)
[2019-08-24 13:50] VITALS: BP 119/78
== END 2019-08-24 13:52 | disposition home or self-care (01) ==
LOC: ER 09:43
DX: K50.90 Crohn's disease, unspecified, without complications (principal); I11.0 Hypertensive heart disease with heart failure; I50.9 Heart failure, unspecified; F41.9 Anxiety disorder, unspecified; J44.9 Chronic obstructive pulmonary disease, unspecified; I25.2 Old myocardial infarction; H40.9 Unspecified glaucoma; H54.7 Unspecified visual loss; Z87.81 Personal history of (healed) traumatic fracture; Z88.8 Allergy status to other drugs, medicaments and biological substances; Z91.018 Allergy to other foods; Z88.6 Allergy status to analgesic agent
CPT/HCPCS: 36415; 73590; 80053; 83690; 85610; 96361; 96374; 96375; 99284; J2270; J2930; J7030

== ENCOUNTER 2019-09-16 08:21 | Inpatient (IN) | payer MEDICAID ==
[~2019-09-16] VITALS: Ht 165.1 cm; Wt 71.8 kg
[2019-09-16] MEDS ORDERED: MORPHINE SULFATE 4 MG/ML CPJ (NOT FOR IM USE) IV STA ×2 (09:30→11:46)
[2019-09-16] MEDS ORDERED: METHYLPREDNISOLONE SOD SUCC 125 MG/2 ML VIAL IV SCH (09:30)
[2019-09-16] MEDS ORDERED: ONDANSETRON HCL 4MG/2ML INJ IV STA ×2 (09:30→11:46)
[2019-09-16] MEDS ORDERED: SODIUM CHLORIDE 0.9% 1,000 ML IV ONE (09:30)
[2019-09-16 10:03] LABS: EOSINOPHILS % 3.5 % (0.0-5.0); HEMATOCRIT. 38.8 % (36.0-48.0); HEMOGLOBIN. 12.7 g/dL (12.0-16.0); LYMPHOCYTES % 18.7 % (20.0-50.0); MEAN CORPUSCULAR HEMOGLOBIN 26.8 pg (28.0-32.0); MEAN PLATELET VOLUME 7.4 fl (7.4-10.4); MONOCYTES % 8.4 % (2.0-8.0); NEUTROPHILS % 68.4 % (40.0-76.0); PLATELET 300 x1000/uL (130-400); RED BLOOD CELL COUNT 4.73 mill/uL (4.2-5.4); RED CELL DISTRIBUTION WIDTH 17.4 % (11.6-14.6)
[2019-09-16 11:08] LABS: CHLORIDE 113 mEq/L (98-107)
[2019-09-16 12:01] LABS: CLARITY URINE CLEAR (CLEAR); COLOR URINE YELLOW (YELLOW); KETONES URINE TRACE (NEGATIVE); LEUKOCYTE ESTERASE URINE NEGATIVE (NEGATIVE); NITRITE URINE NEGATIVE (NEGATIVE); OCCULT BLOOD URINE NEGATIVE (NEGATIVE); PH URINE 5.5 (4.5-8.0); PROTEIN URINE TRACE (NEGATIVE); SPECIFIC GRAVITY URINE 1.036 (1.005-1.030)
[2019-09-16 12:27] LABS: *AMPHETAMINES SCREEN URINE NEGATIVE (NEGATIVE); *BARBITURATES SCREEN URINE NEGATIVE (NEGATIVE); *BENZODIAZEPINES SCREEN URINE NEGATIVE (NEGATIVE); *COCAINE SCREEN URINE PRESUMTIVE POSITIVE (NEGATIVE); METHADONE URINE SCREEN NEGATIVE (NEGATIVE); OPIATES URINE SCREEN PRESUMTIVE POSITIVE (NEGATIVE)
[2019-09-16 12:28] LABS: CANNABINOID URINE SCREEN NEGATIVE (NEGATIVE); PHENCYCLIDINE URINE SCREEN NEGATIVE (NEGATIVE)
[2019-09-16] MEDS: SODIUM CHLORIDE 0.9% 1,000 ML IV SCH (13:21)
[2019-09-16] MEDS ORDERED: ONDANSETRON HCL 4MG/2ML INJ IV PRN (13:30)
[2019-09-16] MEDS ORDERED: CLONIDINE 0.1MG TABLET PO PRN (13:30)
[2019-09-16] MEDS: IPRATROPIUM/ALBUTEROL 0.5-3(2.5)MG/3ML NEB HHN PRN ×2 (14:55→21:45)
[2019-09-16 15:55] LABS: PHOSPHORUS 3.4 mg/dL (2.5-4.9)
[2019-09-16] MEDS: MESALAMINE 400 MG CAPSULE.DR PO SCH (17:04)
[2019-09-16 20:00] VITALS: BP_SYST 136; BP_SYST 150; BP_SYST 171; BP_DIAS 79; BP_DIAS 91; BP_DIAS 96
[2019-09-16] MEDS: MORPHINE SULFATE 2 MG/ML CPJ (NOT FOR IM USE) IV PRN (20:33)
[2019-09-17] VITALS: BP 187/100
[2019-09-17] MEDS: MORPHINE SULFATE 2 MG/ML CPJ (NOT FOR IM USE) IV PRN ×5 (00:42→22:22)
[2019-09-17] MEDS: CLONIDINE 0.2MG TABLET PO PRN ×2 (00:47→17:54)
[2019-09-17] MEDS: METHYLPREDNISOLONE SOD SUCC 40 MG/ML VIAL IV SCH ×5 (03:04→23:34)
[2019-09-17 04:00] VITALS: BP 136/79
[2019-09-17 07:24] LABS: BASOPHILS % 0.5 % (0.0-2.0); EOSINOPHILS % 0.2 % (0.0-5.0); HEMATOCRIT. 34.3 % (36.0-48.0); HEMOGLOBIN. 11.4 g/dL (12.0-16.0); LYMPHOCYTES % 7.8 % (20.0-50.0); MEAN CORPUSCULAR HEMOGLOBIN 27.1 pg (28.0-32.0); MEAN CORPUSCULAR VOLUME 81.7 fL (81.0-99.0); MEAN PLATELET VOLUME 8.2 fl (7.4-10.4); MONOCYTES % 1.9 % (2.0-8.0); NEUTROPHILS % 89.6 % (40.0-76.0); PLATELET 254 x1000/uL (130-400); RED CELL DISTRIBUTION WIDTH 17.1 % (11.6-14.6)
[2019-09-17 07:29] LABS: CHLORIDE 109 mEq/L (98-107)
[2019-09-17 07:37] LABS: LDL CHOLESTEROL 54 mg/dL (5-100)
[2019-09-17 07:38] LABS: HDL CHOLESTEROL 65 mg/dL (40-59)
[2019-09-17 08:00] VITALS: BP 142/98
[2019-09-17] MEDS: MESALAMINE 400 MG CAPSULE.DR PO SCH ×3 (08:13→16:05)
[2019-09-17 12:00] VITALS: BP 155/91
[2019-09-17] MEDS: ENOXAPARIN 40MG/0.4ML SYR SUBCUT SCH ×2 (15:00→16:06)
[2019-09-17 16:00] VITALS: BP 161/89
[2019-09-17] MEDS: SODIUM CHLORIDE 0.9% 1,000 ML IV SCH (17:54)
[2019-09-17 20:00] VITALS: BP 150/97
[2019-09-18] VITALS: BP 175/94
[2019-09-18] MEDS: CLONIDINE 0.2MG TABLET PO PRN ×2 (00:42→08:07)
[2019-09-18 04:00] VITALS: BP 160/97
[2019-09-18] MEDS: SODIUM CHLORIDE 0.9% 1,000 ML IV SCH ×2 (05:54→17:28)
[2019-09-18] MEDS: MORPHINE SULFATE 2 MG/ML CPJ (NOT FOR IM USE) IV PRN ×3 (06:02→20:42)
[2019-09-18 07:34] LABS: HEMATOCRIT. 35.4 % (36.0-48.0); HEMOGLOBIN. 11.6 g/dL (12.0-16.0); MEAN CORPUSCULAR HEMOGLOBIN 26.9 pg (28.0-32.0); MEAN CORPUSCULAR VOLUME 81.9 fL (81.0-99.0); MEAN PLATELET VOLUME 8.7 fl (7.4-10.4); PLATELET 270 x1000/uL (130-400); RED BLOOD CELL COUNT 4.32 mill/uL (4.2-5.4); RED CELL DISTRIBUTION WIDTH 17.1 % (11.6-14.6)
[2019-09-18 07:50] LABS: CHLORIDE 106 mEq/L (98-107)
[2019-09-18 08:00] VITALS: BP 179/100
[2019-09-18] MEDS: MESALAMINE 400 MG CAPSULE.DR PO SCH ×3 (08:06→16:00)
[2019-09-18] MEDS: METHYLPREDNISOLONE SOD SUCC 40 MG/ML VIAL IV SCH ×2 (08:06→16:00)
[2019-09-18 10:09] LABS: PLATELET ESTIMATE NORMAL
[2019-09-18 12:00] VITALS: BP 185/98
[2019-09-18] MEDS: AMLODIPINE 5MG TABLET PO SCH ×2 (14:09→22:10)
[2019-09-18 16:00] VITALS: BP 148/97
[2019-09-18] MEDS: ENOXAPARIN 40MG/0.4ML SYR SUBCUT SCH (16:00)
[2019-09-18 20:00] VITALS: BP 154/92
[2019-09-19] VITALS (8 sets, daily range): BP systolic 117–187; BP diastolic 73–107
[2019-09-19] MEDS: METHYLPREDNISOLONE SOD SUCC 40 MG/ML VIAL IV SCH ×3 (00:51→17:30)
[2019-09-19] MEDS: MORPHINE SULFATE 2 MG/ML CPJ (NOT FOR IM USE) IV PRN ×4 (03:15→20:28)
[2019-09-19] MEDS: MESALAMINE 400 MG CAPSULE.DR PO SCH ×3 (08:21→17:29)
[2019-09-19] MEDS: AMLODIPINE 5MG TABLET PO SCH ×2 (08:21→20:21)
[2019-09-19 08:22] LABS: HEMATOCRIT. 38.7 % (36.0-48.0); HEMOGLOBIN. 12.8 g/dL (12.0-16.0); MEAN CORPUSCULAR HEMOGLOBIN 27.3 pg (28.0-32.0); MEAN CORPUSCULAR VOLUME 82.3 fL (81.0-99.0); MEAN PLATELET VOLUME 8.8 fl (7.4-10.4); PLATELET 263 x1000/uL (130-400); RED CELL DISTRIBUTION WIDTH 16.8 % (11.6-14.6)
[2019-09-19 08:32] LABS: CHLORIDE 102 mEq/L (98-107)
[2019-09-19 08:37] LABS: PHOSPHORUS 2.9 mg/dL (2.5-4.9)
[2019-09-19 08:41] LABS: T4 FREE 0.84 ng/dL (0.76-1.46)
[2019-09-19] MEDS: SODIUM CHLORIDE 0.9% 1,000 ML IV SCH (11:25)
[2019-09-19] MEDS: LOSARTAN POTASSIUM 25 MG TABLET PO SCH (12:23)
[2019-09-19] MEDS ORDERED: PANT40TA4 MT (12:24)
[2019-09-19] MEDS ORDERED: AMLO5TAB88 PO (12:24)
[2019-09-19] MEDS ORDERED: HYDR-4001 MT (12:24)
[2019-09-19] MEDS ORDERED: LOSA25TA26 MT (12:24)
[2019-09-19] MEDS ORDERED: PRED10TA23 MT (12:24)
[2019-09-19 13:35] LABS: PLATELET ESTIMATE NORMAL
[2019-09-19] MEDS: ENOXAPARIN 40MG/0.4ML SYR SUBCUT SCH (14:14)
[2019-09-19] MEDS: CLONIDINE 0.2MG TABLET PO PRN (21:24)
[2019-09-20] MEDS: METHYLPREDNISOLONE SOD SUCC 40 MG/ML VIAL IV SCH ×2 (00:08→09:01)
[2019-09-20] MEDS: MORPHINE SULFATE 2 MG/ML CPJ (NOT FOR IM USE) IV PRN ×3 (01:10→12:35)
[2019-09-20] MEDS: SODIUM CHLORIDE 0.9% 1,000 ML IV SCH ×2 (03:55→10:46)
[2019-09-20 04:00] VITALS: BP 145/85
[2019-09-20 08:00] VITALS: BP 117/78
[2019-09-20] MEDS: MESALAMINE 400 MG CAPSULE.DR PO SCH (09:06)
[2019-09-20] MEDS: AMLODIPINE 5MG TABLET PO SCH (09:06)
[2019-09-20] MEDS: LOSARTAN POTASSIUM 25 MG TABLET PO SCH (09:07)
[2019-09-20 12:00] VITALS: BP 140/80
[2019-09-20] MEDS ORDERED: HYDR-4001 MT (12:17)
[2019-09-20] MEDS ORDERED: PRED10TA PO (12:17)
[2019-09-20] MEDS ORDERED: AMLO5TAB88 PO (12:17)
[2019-09-20] MEDS ORDERED: PANT40TA4 MT (12:17)
[2019-09-20] MEDS ORDERED: LOSA25TA3 PO (12:17)
[2019-09-20 12:35] VITALS: BP 140/80
== END 2019-09-20 13:44 | disposition home or self-care (01) | DRG 245 ==
LOC: ER 08:21 → EDBEDREQTM 12:58 → EDBEDREQ 12:58 → ENRESERV 15:55 → 6EST 18:18
PROVIDERS: ADMIT Internal Medicine; ATTEND Emergency Medicine
DX: K50.012 Crohn's disease of small intestine with intestinal obstruction (principal); E46 Unspecified protein-calorie malnutrition; I11.0 Hypertensive heart disease with heart failure; K86.89 Other specified diseases of pancreas; K76.0 Fatty (change of) liver, not elsewhere classified; I50.9 Heart failure, unspecified; D63.8 Anemia in other chronic diseases classified elsewhere; H54.7 Unspecified visual loss; D25.9 Leiomyoma of uterus, unspecified; K38.1 Appendicular concretions; M16.0 Bilateral primary osteoarthritis of hip; J44.9 Chronic obstructive pulmonary disease, unspecified; F41.9 Anxiety disorder, unspecified; M19.90 Unspecified osteoarthritis, unspecified site; M54.30 Sciatica, unspecified side; Z91.19 Patient's noncompliance with other medical treatment and regimen; F14.90 Cocaine use, unspecified, uncomplicated; F11.90 Opioid use, unspecified, uncomplicated; Z68.26 Body mass index [BMI] 26.0-26.9, adult; Q45.3 Other congenital malformations of pancreas and pancreatic duct; Z88.6 Allergy status to analgesic agent; Z79.899 Other long term (current) drug therapy; Z79.1 Long term (current) use of non-steroidal anti-inflammatories (NSAID); I25.2 Old myocardial infarction; Z98.891 History of uterine scar from previous surgery; Z03.818 Encounter for observation for suspected exposure to other biological agents ruled out
CPT/HCPCS: 36415; 71045; 74176; 76700; 80048; 80053; 80061; 80305; 81003; 83735; 84100; 84439; 84443; 84481; 85025; 93970; 96374; 99285; J1650; J2270; J2405; J2920; J2930; J7030; U0003-CS

== ENCOUNTER 2019-11-28 08:24 | Inpatient (IN) | payer MEDICAID ==
[~2019-11-28] VITALS: Ht 152.4 cm; Wt 56.7 kg
[~2019-11-28 08:24] MED LIST changes: +AMLO5TAB88 PO; +HYDR-4001 MT; +LOSA25TA3 PO; +PANT40TA4 MT; +PRED10TA PO
[2019-11-28] MEDS ORDERED: MORPHINE SULFATE 4 MG/ML CPJ (NOT FOR IM USE) IV STA (08:51)
[2019-11-28] MEDS ORDERED: ONDANSETRON HCL 4MG/2ML INJ IV STA (08:51)
[2019-11-28 09:04] LABS: EOSINOPHILS % 1.4 % (0.0-5.0); HEMATOCRIT. 37.9 % (36.0-48.0); HEMOGLOBIN. 12.5 g/dL (12.0-16.0); LYMPHOCYTES % 27.6 % (20.0-50.0); MEAN CORPUSCULAR HEMOGLOBIN 27.2 pg (28.0-32.0); MEAN CORPUSCULAR VOLUME 82.6 fL (81.0-99.0); MEAN PLATELET VOLUME 7.9 fl (7.4-10.4); MONOCYTES % 7.7 % (2.0-8.0); NEUTROPHILS % 62.3 % (40.0-76.0); PLATELET 269 x1000/uL (130-400); RED BLOOD CELL COUNT 4.59 mill/uL (4.2-5.4); RED CELL DISTRIBUTION WIDTH 16.1 % (11.6-14.6)
[2019-11-28 09:10] LABS: CHLORIDE 108 mEq/L (98-107)
[2019-11-28 09:33] LABS: INR 0.9; PROTHROMBIN TIME 9.9 sec (9.6-11.0)
[2019-11-28] MEDS ORDERED: MORPHINE SULFATE 4 MG/ML CPJ (NOT FOR IM USE) IV ONE (11:00)
[2019-11-28] MEDS ORDERED: CLONIDINE 0.1MG TABLET PO PRN (12:00)
[2019-11-28] MEDS ORDERED: ONDANSETRON HCL 4MG/2ML INJ IV PRN (12:00)
[2019-11-28] MEDS ORDERED: DIPHENHYDRAMINE 50MG/ML VIAL IV PRN (12:00)
[2019-11-28] MEDS: SODIUM CHLORIDE 0.9% 1,000 ML IV SCH (12:04)
[2019-11-28 12:22] LABS: PHOSPHORUS 3.5 mg/dL (2.5-4.9)
[2019-11-28 13:20] VITALS: BP 104/103
[2019-11-28 13:37] VITALS: BP 169/86
[2019-11-28] MEDS: LOSARTAN POTASSIUM 25 MG TABLET PO SCH (15:49)
[2019-11-28] MEDS: AMLODIPINE 5MG TABLET PO SCH (15:50)
[2019-11-28 16:00] VITALS: BP 169/86
[2019-11-28 20:00] VITALS: BP 114/61
[2019-11-28] MEDS: MORPHINE SULFATE 2 MG/ML CPJ (NOT FOR IM USE) IV PRN (21:09)
[2019-11-29] VITALS: BP 103/59
[2019-11-29] MEDS: SODIUM CHLORIDE 0.9% 1,000 ML IV SCH ×2 (01:40→14:40)
[2019-11-29] MEDS: MORPHINE SULFATE 2 MG/ML CPJ (NOT FOR IM USE) IV PRN ×5 (03:51→23:41)
[2019-11-29 04:00] VITALS: BP 127/81
[2019-11-29 08:45] LABS: CHLORIDE 107 mEq/L (98-107)
[2019-11-29 08:49] LABS: BASOPHILS % 0.9 % (0.0-2.0); EOSINOPHILS % 1.8 % (0.0-5.0); HEMATOCRIT. 36.6 % (36.0-48.0); HEMOGLOBIN. 11.8 g/dL (12.0-16.0); LYMPHOCYTES % 28.5 % (20.0-50.0); MEAN CORPUSCULAR HEMOGLOBIN 26.8 pg (28.0-32.0); MEAN CORPUSCULAR VOLUME 82.8 fL (81.0-99.0); MEAN PLATELET VOLUME 7.6 fl (7.4-10.4); MONOCYTES % 8.2 % (2.0-8.0); NEUTROPHILS % 60.6 % (40.0-76.0); PLATELET 278 x1000/uL (130-400); RED BLOOD CELL COUNT 4.41 mill/uL (4.2-5.4); RED CELL DISTRIBUTION WIDTH 16.9 % (11.6-14.6)
[2019-11-29] MEDS: AMLODIPINE 5MG TABLET PO SCH (08:52)
[2019-11-29] MEDS: LOSARTAN POTASSIUM 25 MG TABLET PO SCH (08:52)
[2019-11-29 08:53] LABS: LDL CHOLESTEROL 76 mg/dL (5-100)
[2019-11-29 08:54] LABS: HDL CHOLESTEROL 70 mg/dL (40-59)
[2019-11-29] MEDS ORDERED: LOSARTAN POTASSIUM 25 MG TABLET PO SCH (09:15)
[2019-11-29] MEDS: PANTOPRAZOLE 40MG DR TABLET PO SCH (10:42)
[2019-11-29] MEDS: PREDNISONE 20MG TABLET PO SCH (10:42)
[2019-11-29] MEDS ORDERED: MESALAMINE 250MG CAPSULE EXTENDED RELEASE PO SCH (13:00)
[2019-11-29] MEDS ORDERED: MESALAMINE 500 MG CAPSULE.ER PO SCH (13:00)
[2019-11-29 20:00] VITALS: BP 146/73
[2019-11-30] VITALS: BP 148/88
[2019-11-30] MEDS: MORPHINE SULFATE 2 MG/ML CPJ (NOT FOR IM USE) IV PRN ×5 (03:57→22:40)
[2019-11-30 04:00] VITALS: BP 154/95
[2019-11-30 05:04] LABS: CHLORIDE 103 mEq/L (98-107)
[2019-11-30 06:34] LABS: BASOPHILS % 0.6 % (0.0-2.0); HEMATOCRIT. 37.2 % (36.0-48.0); HEMOGLOBIN. 12.1 g/dL (12.0-16.0); LYMPHOCYTES % 21.9 % (20.0-50.0); MEAN CORPUSCULAR HEMOGLOBIN 26.6 pg (28.0-32.0); MEAN CORPUSCULAR VOLUME 81.9 fL (81.0-99.0); MEAN PLATELET VOLUME 8.3 fl (7.4-10.4); MONOCYTES % 9.4 % (2.0-8.0); NEUTROPHILS % 67.1 % (40.0-76.0); PLATELET 300 x1000/uL (130-400); RED BLOOD CELL COUNT 4.54 mill/uL (4.2-5.4); RED CELL DISTRIBUTION WIDTH 16.2 % (11.6-14.6)
[2019-11-30 08:00] VITALS: BP 155/92
[2019-11-30] MEDS: PREDNISONE 20MG TABLET PO SCH (08:57)
[2019-11-30] MEDS: AMLODIPINE 5MG TABLET PO SCH (08:58)
[2019-11-30] MEDS: PANTOPRAZOLE 40MG DR TABLET PO SCH (08:58)
[2019-11-30] MEDS: LOSARTAN POTASSIUM 25 MG TABLET PO SCH (08:58)
[2019-11-30 12:00] VITALS: BP 135/84
[2019-11-30] MEDS ORDERED: PANT40TA4 MT (14:16)
[2019-11-30] MEDS ORDERED: P20 PO (14:16)
[2019-11-30] MEDS ORDERED: MESA800T PO (14:16)
[2019-11-30 16:00] VITALS: BP 139/73
[2019-11-30] MEDS: MESALAMINE 250MG CAPSULE EXTENDED RELEASE PO SCH ×2 (18:05→18:40)
[2019-11-30 20:00] VITALS: BP 134/74
[2019-12-01] VITALS: BP 137/78
[2019-12-01] MEDS: MORPHINE SULFATE 2 MG/ML CPJ (NOT FOR IM USE) IV PRN ×2 (02:57→08:45)
[2019-12-01 04:00] VITALS: BP 137/79
[2019-12-01] MEDS: SODIUM CHLORIDE 0.9% 1,000 ML IV SCH (06:40)
[2019-12-01] MEDS: PANTOPRAZOLE 40MG DR TABLET PO SCH (06:58)
[2019-12-01 08:00] VITALS: BP 151/88
[2019-12-01] MEDS: MESALAMINE 250MG CAPSULE EXTENDED RELEASE PO SCH (08:44)
[2019-12-01] MEDS: PREDNISONE 20MG TABLET PO SCH (08:44)
[2019-12-01] MEDS: AMLODIPINE 5MG TABLET PO SCH (08:44)
[2019-12-01] MEDS: LOSARTAN POTASSIUM 25 MG TABLET PO SCH (08:44)
[2019-12-01 09:11] LABS: SACCHAROMYCES CEREVISIAE IGG <20.0 Units (0.0-24.9); SACCHAROMYCES CEREVISIAE IGM <20.0 Units (0.0-24.9)
[2019-12-01 10:19] VITALS: BP 151/88
[2019-12-01] MEDS ORDERED: HYDR-4001 MT (10:43)
[2019-12-01 13:06] LABS: ATYPICAL pANCA <1:20 titer (Neg:<1:20)
[2019-12-05 04:06] LABS: OVA & PARASITE EXAM Final report (.)
== END 2019-12-01 13:48 | disposition home or self-care (01) | DRG 245 ==
LOC: ER 08:24 → 6EST 11:45 → ENRESERV 12:19
PROVIDERS: ADMIT Internal Medicine; ATTEND Internal Medicine
DX: K50.90 Crohn's disease, unspecified, without complications (principal); D25.9 Leiomyoma of uterus, unspecified; I11.0 Hypertensive heart disease with heart failure; F17.210 Nicotine dependence, cigarettes, uncomplicated; D50.9 Iron deficiency anemia, unspecified; M19.90 Unspecified osteoarthritis, unspecified site; F41.9 Anxiety disorder, unspecified; I50.9 Heart failure, unspecified; J44.9 Chronic obstructive pulmonary disease, unspecified; Z91.19 Patient's noncompliance with other medical treatment and regimen; Z88.6 Allergy status to analgesic agent; Z88.8 Allergy status to other drugs, medicaments and biological substances; Z91.018 Allergy to other foods; Z79.899 Other long term (current) drug therapy; I25.2 Old myocardial infarction; E44.0 Moderate protein-calorie malnutrition
CPT/HCPCS: 36415; 74176; 80048; 80053; 80061; 82270; 83735; 84100; 84443; 85025; 86256; 86671; 87015; 87045; 87177; 87209; 87427; 87449; 89055; 93005; 93970; 99285; J2270; J2405; J7512

== ENCOUNTER 2020-01-28 15:12 | Emergency (ER) | payer MEDICAID ==
[~2020-01-28] VITALS: Ht 167.6 cm; Wt 64.0 kg
[~2020-01-28 15:12] MED LIST changes: -PANT20TA3 MT; -PRED10TA PO
[2020-01-28] MEDS ORDERED: ONDANSETRON HCL 4MG/2ML INJ IV STA (16:20)
[2020-01-28] MEDS ORDERED: MAGNESIUM/ALUMINUM HYDROXIDE/SIMETHICONE 30ML UDC PO STA (16:20)
[2020-01-28] MEDS ORDERED: FAMOTIDINE 20MG/2ML VIAL IV STA (16:20)
[2020-01-28] MEDS ORDERED: MORPHINE SULFATE 4 MG/ML CPJ (NOT FOR IM USE) IV STA (16:20)
[2020-01-28] MEDS ORDERED: SODIUM CHLORIDE 0.9% 1,000 ML IV ONE (16:30)
[2020-01-28 18:42] LABS: BASOPHILS % 0.7 % (0.0-2.0); EOSINOPHILS % 2.6 % (0.0-5.0); HEMATOCRIT. 39.1 % (36.0-48.0); HEMOGLOBIN. 12.9 g/dL (12.0-16.0); LYMPHOCYTES % 23.5 % (20.0-50.0); MEAN CORPUSCULAR HEMOGLOBIN 27.8 pg (28.0-32.0); MEAN CORPUSCULAR VOLUME 84.1 fL (81.0-99.0); MONOCYTES % 7.2 % (2.0-8.0); PLATELET 294 x1000/uL (130-400); RED BLOOD CELL COUNT 4.65 mill/uL (4.2-5.4); RED CELL DISTRIBUTION WIDTH 16.8 % (11.6-14.6)
[2020-01-28 18:48] LABS: CHLORIDE 108 mEq/L (98-107)
[2020-01-28 18:53] LABS: INR 0.9
[2020-01-28 20:30] VITALS: BP 156/90
== END 2020-01-28 20:30 | disposition home or self-care (01) ==
LOC: ER 15:12
DX: R10.9 Unspecified abdominal pain (principal); K50.90 Crohn's disease, unspecified, without complications; I10 Essential (primary) hypertension; F17.200 Nicotine dependence, unspecified, uncomplicated; I11.0 Hypertensive heart disease with heart failure; I50.9 Heart failure, unspecified; I25.2 Old myocardial infarction; J44.9 Chronic obstructive pulmonary disease, unspecified; Z88.6 Allergy status to analgesic agent; Z88.5 Allergy status to narcotic agent; Z88.8 Allergy status to other drugs, medicaments and biological substances; Z91.018 Allergy to other foods; Z79.899 Other long term (current) drug therapy
CPT/HCPCS: 36415; 74176; 76705; 80053; 83690; 83880; 84484; 85025; 85610; 93005; 96361; 96374; 96375; 99285; J2270; J2405; J3490; J7030

== ENCOUNTER 2020-02-26 08:52 | Emergency (ER) | payer MEDICAID ==
[~2020-02-26] VITALS: Ht 165.1 cm; Wt 65.0 kg
[2020-02-26 10:34] LABS: BASOPHILS % 0.7 % (0.0-2.0); EOSINOPHILS % 2.5 % (0.0-5.0); HEMATOCRIT. 37.8 % (36.0-48.0); HEMOGLOBIN. 12.5 g/dL (12.0-16.0); MEAN CORPUSCULAR HEMOGLOBIN 27.3 pg (28.0-32.0); MEAN CORPUSCULAR VOLUME 82.8 fL (81.0-99.0); MONOCYTES % 9.2 % (2.0-8.0); NEUTROPHILS % 61.6 % (40.0-76.0); PLATELET 349 x1000/uL (130-400); RED BLOOD CELL COUNT 4.57 mill/uL (4.2-5.4); RED CELL DISTRIBUTION WIDTH 16.2 % (11.6-14.6)
[2020-02-26 10:40] LABS: CHLORIDE 109 mEq/L (98-107)
[2020-02-26 10:43] LABS: PROTHROMBIN TIME 10.2 sec (9.6-11.0)
[2020-02-26] MEDS ORDERED: MORPHINE SULFATE 4 MG/ML CPJ (NOT FOR IM USE) IV ONE (11:45)
[2020-02-26] MEDS ORDERED: HYDRALAZINE HCL 25MG TABLET PO ONE (13:00)
[2020-02-26] MEDS: NITROGLYCERIN 0.4MG TABLET SL SL PRN ×2 (13:09→13:20)
[2020-02-26 13:25] VITALS: BP 154/107
== END 2020-02-26 13:38 | disposition short-term general hospital (02) ==
LOC: ER 09:18 → EDBEDREQTM 11:28 → ER 13:38 → CANBEDREQ 18:26
DX: R07.89 Other chest pain (principal); R11.0 Nausea; R10.84 Generalized abdominal pain; I11.0 Hypertensive heart disease with heart failure; I50.9 Heart failure, unspecified; J44.9 Chronic obstructive pulmonary disease, unspecified; I25.2 Old myocardial infarction; Z79.899 Other long term (current) drug therapy; Z88.6 Allergy status to analgesic agent; Z88.5 Allergy status to narcotic agent
CPT/HCPCS: 36415; 71045; 74176; 80053; 83880; 84484; 85025; 85610; 85730; 93005; 96374; 99285; J2270

== ENCOUNTER 2020-04-30 07:00 | Emergency (ER) | payer MEDICAID ==
[~2020-04-30] VITALS: Ht 167.6 cm; Wt 64.0 kg
[~2020-04-30 07:00] MED LIST changes: -PANT40TA4 MT; +PANT40TA51 MT
[2020-04-30 08:35] LABS: BASOPHILS % 0.6 % (0.0-2.0); EOSINOPHILS % 2.1 % (0.0-5.0); HEMATOCRIT. 38.3 % (36.0-48.0); HEMOGLOBIN. 12.3 g/dL (12.0-16.0); LYMPHOCYTES % 22.2 % (20.0-50.0); MEAN CORPUSCULAR VOLUME 80.6 fL (81.0-99.0); MEAN PLATELET VOLUME 7.2 fl (7.4-10.4); MONOCYTES % 10.4 % (2.0-8.0); NEUTROPHILS % 64.7 % (40.0-76.0); PLATELET 290 x1000/uL (130-400); RED BLOOD CELL COUNT 4.75 mill/uL (4.2-5.4); RED CELL DISTRIBUTION WIDTH 16.3 % (11.6-14.6)
[2020-04-30 08:39] LABS: CHLORIDE 105 mEq/L (98-107)
[2020-04-30 08:42] LABS: INR 0.9
[2020-04-30] MEDS ORDERED: ONDANSETRON HCL 4MG/2ML INJ IV ONE (11:45)
[2020-04-30] MEDS ORDERED: ONDANSETRON HCL 4MG TABLET PO ONE (12:00)
[2020-04-30] MEDS ORDERED: T3 PO (13:06)
[2020-04-30] MEDS ORDERED: ONDA4TAB5 MT (13:07)
[2020-04-30 13:24] VITALS: BP 141/98
== END 2020-04-30 13:27 | disposition home or self-care (01) ==
LOC: ER 07:00
DX: R10.13 Epigastric pain (principal); J44.9 Chronic obstructive pulmonary disease, unspecified; K50.90 Crohn's disease, unspecified, without complications; F41.9 Anxiety disorder, unspecified; M19.90 Unspecified osteoarthritis, unspecified site; I11.0 Hypertensive heart disease with heart failure; I50.9 Heart failure, unspecified; I25.2 Old myocardial infarction; Z20.828 Contact with and (suspected) exposure to other viral communicable diseases; Z88.6 Allergy status to analgesic agent; Z88.8 Allergy status to other drugs, medicaments and biological substances; Z91.018 Allergy to other foods
CPT/HCPCS: 36415; 71045; 74176; 80053; 83690; 84484; 85025; 85610; 93005; 99285; Q0162

== ENCOUNTER 2020-05-12 09:09 | Emergency (ER) | payer MEDICAID, OTHER ==
[~2020-05-12] VITALS: Ht 160 cm; Wt 70.0 kg
[~2020-05-12 09:09] MED LIST changes: +ONDA4TAB5 MT; +T3 PO
[2020-05-12] MEDS ORDERED: MORPHINE SULFATE 4 MG/ML CPJ (NOT FOR IM USE) IV STA (10:21)
[2020-05-12 10:55] LABS: BASOPHILS % 1.2 % (0.0-2.0); EOSINOPHILS % 0.5 % (0.0-5.0); HEMATOCRIT. 36.3 % (36.0-48.0); HEMOGLOBIN. 11.8 g/dL (12.0-16.0); LYMPHOCYTES % 16.2 % (20.0-50.0); MEAN CORPUSCULAR HEMOGLOBIN 25.9 pg (28.0-32.0); MEAN CORPUSCULAR VOLUME 79.7 fL (81.0-99.0); MEAN PLATELET VOLUME 7.7 fl (7.4-10.4); MONOCYTES % 6.4 % (2.0-8.0); NEUTROPHILS % 75.7 % (40.0-76.0); PLATELET 387 x1000/uL (130-400); RED BLOOD CELL COUNT 4.56 mill/uL (4.2-5.4); RED CELL DISTRIBUTION WIDTH 16.5 % (11.6-14.6)
[2020-05-12] MEDS ORDERED: ALBUTEROL 6.7GM HFA INHALER ORI ONE (11:00)
[2020-05-12 11:05] LABS: CHLORIDE 104 mEq/L (98-107); PROTHROMBIN TIME 10.1 sec (9.6-11.0)
[2020-05-12 11:17] LABS: CLARITY URINE CLEAR (CLEAR); COLOR URINE YELLOW (YELLOW); KETONES URINE NEGATIVE (NEGATIVE); LEUKOCYTE ESTERASE URINE NEGATIVE (NEGATIVE); NITRITE URINE NEGATIVE (NEGATIVE); OCCULT BLOOD URINE NEGATIVE (NEGATIVE); PH URINE 5.5 (4.5-8.0); PROTEIN URINE NEGATIVE (NEGATIVE); SPECIFIC GRAVITY URINE 1.019 (1.005-1.030); UROBILINOGEN URINE 0.2 E.U./dL (0.2-1.0)
[2020-05-12] MEDS ORDERED: T3 PO (11:54)
[2020-05-12] MEDS ORDERED: MESA800T MT (11:54)
[2020-05-12] MEDS ORDERED: P50 MT (11:54)
[2020-05-12 12:16] VITALS: BP 165/89
== END 2020-05-12 12:23 | disposition home or self-care (01) ==
LOC: ER 09:15
DX: R10.84 Generalized abdominal pain (principal); J45.901 Unspecified asthma with (acute) exacerbation; U07.1 COVID-19; K50.90 Crohn's disease, unspecified, without complications; I25.2 Old myocardial infarction; J44.9 Chronic obstructive pulmonary disease, unspecified; M19.90 Unspecified osteoarthritis, unspecified site; F41.9 Anxiety disorder, unspecified; I11.0 Hypertensive heart disease with heart failure; I50.9 Heart failure, unspecified; Z88.6 Allergy status to analgesic agent; Z88.8 Allergy status to other drugs, medicaments and biological substances; Z91.018 Allergy to other foods
CPT/HCPCS: 36415; 71045; 80053; 81003; 83690; 85025; 85610; 93005; 96374; 99285; J2270

== ENCOUNTER 2024-02-29 12:36 | Emergency (ER) | payer MEDICARE, MEDICAID ==
[~2024-02-29] VITALS: Ht 167.6 cm; Wt 85.0 kg
[~2024-02-29 12:36] MED LIST changes: +BRIM5DRO6 EACHEYE; +DIPH-1091 MT; -DIPH1TAB24 MT; +DORZ10DR8 EACHEYE; -HYDR-4001 PO; +LATA2.5D14 EACHEYE; +LOSA-412 PO; -LOSA25TA3 PO; +MESA800T MT; +NETA2.5D EACHEYE; -ONDA4TAB5 MT; -P20 PO; -T3 PO
[2024-02-29 12:43] VITALS: O2SAT 99
[2024-02-29 12:51] VITALS: BP 164/92; PULSE 87; RESP 18; TEMP 98.5; O2SAT 97
[2024-02-29] MEDS ORDERED: TOPUD MT (13:51)
[2024-02-29] MEDS ORDERED: LIDO700A15 TP (13:51)
[2024-02-29] MEDS ORDERED: METH-653 MT (13:51)
== END 2024-02-29 14:06 | disposition home or self-care (01) ==
LOC: ER 12:36
DX: M79.10 Myalgia, unspecified site (principal); F41.9 Anxiety disorder, unspecified; I11.0 Hypertensive heart disease with heart failure; I50.9 Heart failure, unspecified; I25.2 Old myocardial infarction; J44.9 Chronic obstructive pulmonary disease, unspecified; Z79.899 Other long term (current) drug therapy; Z96.649 Presence of unspecified artificial hip joint; Z88.5 Allergy status to narcotic agent; Z88.6 Allergy status to analgesic agent
CPT/HCPCS: 99283

== ENCOUNTER 2024-11-15 19:45 | Inpatient (IN) | payer MEDICARE, MEDICAID ==
[~2024-11-15] VITALS: Ht 167.6 cm; Wt 68.0 kg
[~2024-11-15 19:45] MED LIST changes: +ALBU2.5V13 INH; +AMLO-372 PO; -AMLO5TAB88 PO; +BRIM5DRO31 EACHEYE; -BRIM5DRO6 EACHEYE; +CYCL10TA21 PO; -DORZ10DR8 EACHEYE; +DORZ10DR9 EACHEYE; -HYDR-4001 MT; -MESA800T MT; -MESA800T PO; +MESALAMINE 800 MG PO; +METH-653 MT; +OMEP40CA20 PO; +P20 PO; -PANT40TA51 MT
[2024-11-15 19:50] VITALS: O2SAT 97
[2024-11-15 21:03] LABS: BASOPHILS % 0.4 % (0.0-2.0); EOSINOPHILS % 1.5 % (0.0-5.0); HEMATOCRIT. 42.9 % (36.0-48.0); HEMOGLOBIN. 13.8 g/dL (12.0-16.0); LYMPHOCYTES % 22.1 % (20.0-50.0); MEAN PLATELET VOLUME 6.7 fl (7.4-10.4); MONOCYTES % 9.6 % (2.0-8.0); NEUTROPHILS % 66.4 % (40.0-76.0); PLATELET 395 x1000/uL (130-400); RED BLOOD CELL COUNT 5.39 mill/uL (4.2-5.4); RED CELL DISTRIBUTION WIDTH 16.8 % (11.6-14.6)
[2024-11-15 21:14] LABS: CREATININE 0.9 mg/dL (0.6-1.0)
[2024-11-15 21:15] LABS: UREA NITROGEN BLOOD 18 mg/dL (9-23)
[2024-11-15 21:16] LABS: ASPARTATE AMINOTRANSFERASE 13 IU/L (<34)
[2024-11-15 21:17] LABS: BILIRUBIN DIRECT < 0.1 mg/dL (<=3.0); BILIRUBIN TOTAL 0.3 mg/dL (0.1-1.0); PROTEIN TOTAL 7.2 g/dL (6.0-8.3)
[2024-11-15 21:34] LABS: CLARITY URINE CLEAR (CLEAR); COLOR URINE YELLOW (YELLOW); GLUCOSE URINE NEGATIVE (NEGATIVE); KETONES URINE TRACE (NEGATIVE); LEUKOCYTE ESTERASE URINE NEGATIVE (NEGATIVE); NITRITE URINE NEGATIVE (NEGATIVE); OCCULT BLOOD URINE NEGATIVE (NEGATIVE); PH URINE 5.0 (4.5-8.0); PROTEIN URINE NEGATIVE (NEGATIVE); SPECIFIC GRAVITY URINE 1.025 (1.005-1.030); UROBILINOGEN URINE 0.2 E.U./dL (0.2-1.0)
[2024-11-15 22:24] LABS: TROPONIN I HIGH SENSITIVITY < 4 ng/L (3.0-34)
[2024-11-15] MEDS: ONDANSETRON HCL 4MG/2ML INJ IV ONE (22:31)
[2024-11-15] MEDS: MORPHINE SULFATE 4 MG/ML INJ (FOR IV/IM USE) IV ONE (22:31)
[2024-11-15 23:24] LABS: TROPONIN I HIGH SENSITIVITY < 4 ng/L (3.0-34)
[2024-11-16] VITALS (7 sets, daily range): BP systolic 110–154; BP diastolic 63–79; PULSE 82–118; RESP 18–20; TEMP 36.4–36.7; O2SAT 90–98
[2024-11-16] MEDS: MORPHINE SULFATE 2 MG/ML INJ (NOT FOR IM USE) IV PRN ×3 (02:53→17:20)
[2024-11-16] MEDS: SODIUM CHLORIDE 0.9% 1,000 ML IV SCH (03:03)
[2024-11-16] MEDS: CEFTRIAXONE 1GM/50ML 50ML IV SCH (03:03)
[2024-11-16] MEDS: METRONIDAZOLE 500 MG PREMIX 100 ML IV SCH (06:40)
[2024-11-16 06:50] LABS: BASOPHILS % 0.4 % (0.0-2.0); EOSINOPHILS % 1.6 % (0.0-5.0); HEMATOCRIT. 41.3 % (36.0-48.0); HEMOGLOBIN. 13.3 g/dL (12.0-16.0); LYMPHOCYTES % 21.6 % (20.0-50.0); MEAN PLATELET VOLUME 7.0 fl (7.4-10.4); MONOCYTES % 12.2 % (2.0-8.0); NEUTROPHILS % 64.2 % (40.0-76.0); PLATELET 370 x1000/uL (130-400); RED BLOOD CELL COUNT 5.13 mill/uL (4.2-5.4); RED CELL DISTRIBUTION WIDTH 16.7 % (11.6-14.6)
[2024-11-16 07:02] LABS: CREATININE 0.8 mg/dL (0.6-1.0); UREA NITROGEN BLOOD 14 mg/dL (9-23)
[2024-11-16] MEDS ORDERED: CEFTRIAXONE SODIUM 1G VIAL IV SCH (09:00)
[2024-11-16] MEDS ORDERED: CLONIDINE 0.1MG TABLET PO PRN (11:45)
[2024-11-16] MEDS ORDERED: DOCUSATE SODIUM 100MG CAPSULE PO PRN (11:45)
[2024-11-16] MEDS ORDERED: IPRATROPIUM/ALBUTEROL 0.5-3(2.5)MG/3ML NEB HHN PRN (11:45)
[2024-11-16] MEDS ORDERED: ONDANSETRON HCL 4MG/2ML INJ IV PRN (11:45)
[2024-11-16] MEDS: PANTOPRAZOLE SODIUM 40 MG/VIAL IV SCH (11:59)
[2024-11-16] MEDS: DEXT 5%/0.45% NACL 1000ML 1,000 ML IV SCH (12:00)
[2024-11-16] MEDS: ENOXAPARIN 40MG/0.4ML SYR SUBCUT SCH (14:37)
[2024-11-16] MEDS ORDERED: MORPHINE SULFATE/PF 1 MG/ML 100 MG in BAG 1 EACH IV PRN (16:45)
[2024-11-16] MEDS ORDERED: NALOXONE HCL 0.4MG/ML VIAL IV PRN (17:00)
[2024-11-16 19:50] LABS: CLARITY URINE CLEAR (CLEAR); COLOR URINE YELLOW (YELLOW); GLUCOSE URINE NEGATIVE (NEGATIVE); KETONES URINE NEGATIVE (NEGATIVE); LEUKOCYTE ESTERASE URINE TRACE (NEGATIVE); NITRITE URINE NEGATIVE (NEGATIVE); OCCULT BLOOD URINE NEGATIVE (NEGATIVE); PH URINE 5.0 (4.5-8.0); PROTEIN URINE NEGATIVE (NEGATIVE); SPECIFIC GRAVITY URINE 1.011 (1.005-1.030); UROBILINOGEN URINE 0.2 E.U./dL (0.2-1.0)
[2024-11-16 19:58] LABS: *AMPHETAMINES SCREEN URINE NEGATIVE (NEGATIVE); *BARBITURATES SCREEN URINE NEGATIVE (NEGATIVE); *BENZODIAZEPINES SCREEN URINE NEGATIVE (NEGATIVE); *COCAINE SCREEN URINE NEGATIVE (NEGATIVE); CANNABINOID URINE SCREEN NEGATIVE (NEGATIVE); METHADONE URINE SCREEN NEGATIVE (NEGATIVE); OPIATES URINE SCREEN PRESUMPTIVE POSITIVE (NEGATIVE); PHENCYCLIDINE URINE SCREEN NEGATIVE (NEGATIVE)
[2024-11-16 19:59] LABS: ECSTASY MDMA SCREEN URINE NEGATIVE (NEGATIVE)
[2024-11-16 20:25] LABS: BACTERIA URINE TRACE; RBC URINE 0-2 /hpf (0-2); SQUAMOUS EPITHELIAL CELL URINE 1+ /lpf (RARE/1+)
[2024-11-17] VITALS: BP 142/90; PULSE 91; RESP 18; TEMP 36.3; O2SAT 93
[2024-11-17 04:00] VITALS: BP 129/91; PULSE 97; RESP 20; TEMP 36.9; O2SAT 97
[2024-11-17 08:00] VITALS: BP 131/77; PULSE 81; RESP 17; TEMP 36.2; O2SAT 96
[2024-11-17] MEDS: HYDROCODONE/ACETAMINOPHEN 5/325MG TABLET PO PRN (10:43)
[2024-11-17 12:00] VITALS: BP 112/68; PULSE 80; RESP 19; TEMP 36.2; O2SAT 96
[2024-11-17] MEDS: PREDNISONE 20MG TABLET PO SCH (15:05)
[2024-11-17 16:00] VITALS: BP 109/71; PULSE 78; RESP 17; RESP 18; TEMP 36.2; O2SAT 96
[2024-11-17 20:00] VITALS: BP 116/71; PULSE 80; RESP 21; TEMP 36.6; O2SAT 96
[2024-11-17] MEDS: MESALAMINE 400 MG CAPSULE.DR PO SCH (22:22)
[2024-11-18] VITALS: BP 104/66; PULSE 85; RESP 20; TEMP 36.2; O2SAT 96
[2024-11-18 04:00] VITALS: BP 129/69; PULSE 80; RESP 18; TEMP 36.8; O2SAT 97
[2024-11-18 06:12] LABS: CREATININE 0.7 mg/dL (0.6-1.0)
[2024-11-18 06:13] LABS: UREA NITROGEN BLOOD 9 mg/dL (9-23)
[2024-11-18 06:20] LABS: BASOPHILS % 0.1 % (0.0-2.0); EOSINOPHILS % 0.3 % (0.0-5.0); HEMATOCRIT. 38.2 % (36.0-48.0); HEMOGLOBIN. 12.3 g/dL (12.0-16.0); LYMPHOCYTES % 9.9 % (20.0-50.0); MEAN PLATELET VOLUME 7.4 fl (7.4-10.4); MONOCYTES % 7.0 % (2.0-8.0); NEUTROPHILS % 82.7 % (40.0-76.0); PLATELET 339 x1000/uL (130-400); RED BLOOD CELL COUNT 4.77 mill/uL (4.2-5.4); RED CELL DISTRIBUTION WIDTH 16.2 % (11.6-14.6)
[2024-11-18 06:23] LABS: C REACTIVE PROTEIN HIGH SENS 53.19 mg/l (<1.00)
[2024-11-18 08:00] VITALS: BP 144/87; PULSE 91; RESP 18; TEMP 36.6; O2SAT 97
[2024-11-18] MEDS: FAMOTIDINE 20MG/2ML VIAL IV SCH (09:06)
[2024-11-18 12:00] VITALS: BP 124/72; PULSE 77; RESP 18; TEMP 36.5; O2SAT 98
[2024-11-18] MEDS: METRONIDAZOLE 500MG TABLET PO SCH (13:40)
[2024-11-18] MEDS ORDERED: P20 MT (14:36)
[2024-11-18] MEDS ORDERED: MESA400C PO (14:36)
[2024-11-18 16:59] VITALS: BP 124/72; PULSE 77; RESP 18; TEMP 97.7
[2024-11-21 13:08] LABS: SACCHAROMYCES CEREVISIAE IGG 46.3 Units (0.0-24.9); SACCHAROMYCES CEREVISIAE IGM <20.0 Units (0.0-24.9)
== END 2024-11-18 17:40 | disposition home or self-care (01) | DRG 392 ==
LOC: ER 19:45 → 8WST 23:29 → EDBEDREQTM 23:33 → EDBEDREQ 23:33 → ENRESERV 23:43
PROVIDERS: ADMIT Internal Medicine; ATTEND Internal Medicine
DX: K52.9 Noninfective gastroenteritis and colitis, unspecified (principal); I10 Essential (primary) hypertension; J44.9 Chronic obstructive pulmonary disease, unspecified; F32.A Depression, unspecified; D25.9 Leiomyoma of uterus, unspecified; F41.9 Anxiety disorder, unspecified; F17.210 Nicotine dependence, cigarettes, uncomplicated; I25.2 Old myocardial infarction; Z88.6 Allergy status to analgesic agent; Z88.8 Allergy status to other drugs, medicaments and biological substances; Z79.899 Other long term (current) drug therapy
CPT/HCPCS: 36415; 71045; 74176; 80048; 80076; 80305; 81003; 82550; 84484; 85025; 85651; 86141; 86256; 86671; 87015; 87045; 87427; 87449; 87493; 89055; 93005; 93970; 99285; J0696; J1650; J2270; J2405; J2470; J3490; J7030; J7512